=== PATIENT | female | born 1930 | race Caucasian/White ===

== ENCOUNTER 2016-08-13 10:51 | Inpatient (IN) | payer OTHER ==
[2016-08-13 11:54] LABS: BASOPHILS # (AUTO) 0.1 X10^3/uL (0.0-0.1); BASOPHILS % (AUTO) 0.9 % (0.2-1.0); EOSINOPHILS # (AUTO) 0.4 x10^3/uL (0.0-0.2); EOSINOPHILS % (AUTO) 2.7 % (0.9-2.9); HEMATOCRIT 33.9 % (36.0-47.0); HEMOGLOBIN 11.4 g/dL (12.0-16.0); LYMPHOCYTES # (AUTO) 1.1 X10^3/uL (1.3-2.9); MEAN CORPUSCULAR HEMOGLOBIN 32.9 pg (27.0-34.0); MEAN CORPUSCULAR HGB CONC 33.7 g/dL (33.0-35.0); MEAN CORPUSCULAR VOLUME 97.7 fL (80.0-100.0); MEAN PLATELET VOLUME 8.1 fL (7.4-11.0); MONOCYTES # (AUTO) 1.4 x10^3/uL (0.3-0.8); NEUTROPHILS # (AUTO) 10.9 x10^3/uL (2.2-4.8); NEUTROPHILS % (AUTO) 78.4 % (42.0-75.0); PLATELET COUNT 304 X10^3/uL (150.0-450.0); RED BLOOD COUNT 3.47 X10^6/uL (3.5-5.4); RED CELL DISTRIBUTION WIDTH 14.6 % (11.6-16.5); WHITE BLOOD COUNT 13.9 X10^3/uL (3.6-10.0)
--- NOTE | 2016-08-13 11:56 | RAD ---
HISTORY: Shortness of breath Study: Portable chest. Comparison: Portable chest dated December 18, 2015. Findings: The trachea is midline. The cardiac silhouette is mildly enlarged but unchanged. Prominent perihila r vasculature. Bibasilar scarring versus atelectasis. No obvious focal consolidation, pleural effusi on, or pneumothorax. Patient is status post right shoulder arthroplasty with associated remote fract ure of the proximal humerus at the level of the prosthetic stem. Remaining osseous structures appear unchanged. IMPRESSION: 1. No acute cardiopulmonary disease. Reported By:
[2016-08-13 12:07] LABS: BLOOD UREA NITROGEN 16 mg/dL (7-18); CALCIUM 9.4 mg/dL (8.5-10.1); CARBON DIOXIDE 35.4 mmol/L (21-32); CHLORIDE 95 mmol/L (98-107); COR NA(FOR HYPERGLY) 132 mmol/L (136-145); CREATININE 0.91 mg/dL (0.55-1.02); GLUCOSE 166 mg/dL (65-99); SODIUM 130 mmol/L (136-145); TROPONIN I < 0.02 ng/mL (0-1.5); eGFR BLACK RACES > 60 (>60); eGFR NON BLACK RACES > 60 (>60)
[2016-08-13 12:11] LABS: ALANINE AMINOTRANSFERASE 15 Units/L (12-78); ALBUMIN 2.4 g/dL (3.4-5.0); ALKALINE PHOSPHATASE 80 Units/L (46-116); ASPARTATE AMINO TRANSFERASE 29 Units/L (15-37); CKMB % 6.7 % (<4); COR CA(FOR HYPOALB) 10.7 mg/dL (8.5-10.1); CREATINE KINASE 15 Units/L (26-192); CREATINE KINASE MB < 1.0 ng/mL (0-4.0); TOTAL PROTEIN 6.6 g/dL (6.4-8.2)
[2016-08-13 12:13] LABS: B-TYPE NATRIURETIC PEPTIDE 295 pg/mL (0-79)
[2016-08-13] MEDS: NS 1000 ML 1,000 ML IV SCH ×2 (12:21→20:30)
[2016-08-13] MEDS ORDERED: LEVAQUIN PREMIX IV 750 MG 750 MG/150 ML BAG IV ONE ×2 (12:26→12:30)
--- NOTE | 2016-08-13 13:02 | DR.SOBA ---
HPI - Time Seen Time seen: 11:20 - Primary Care Physician Primary Care Physician: Jason - HPI Comment HPI Comment: COUGH IS PRODCTIVE, CHEST PAIN MAINLY CHEST TIGHTNESS. - Complaints Chief Complaint Doctors Comments: PERSISTENT COUGH, CHEST PAIN, AND FEVER. TOOK ANTIBIOTICS TWICE. SYMPTOMS GETTING WORSE. Chief Complaint:: Pt arrived by EMS with c/o possible pneumonia. Pts daughter states she had bronchitis recently. - Reviewed Nurses Notes Reviewed: Yes - Source History Provided: Patient, Family Member - Mode of Arrival Mode of Arrival: Stretcher - Timing Onset of Chief Complaint: 07/16/16 - Duration Duration: Weeks - Context Onset:: At Rest PE Risk Factors:: None History of:: CHF - Modifying Factors Worsens:: Nothing Improves:: Nothing - Associated Signs and Symptoms Associated Signs and Symptoms: Fever, Nasal Congestion, Chest Pain - If Chest Pain Quality: Pleuritic (TIGHTNESS) Location: Chest Wall - If Cough Cough: Productive PMH - PMH Past Medical History: Yes Past Medical History: CHF, CVA, Diabetes, Hypertension Past Surgical History: Yes Surgical History: Angioplasty/Stents, Hysterectomy, Ortho Surgery, Tonsillectomy - Family History History of Family Medical Conditions: Yes Family Medical History: Diabetes Mellitus, [place], Sudden Cardiac - Social History Does patient currently use any type of tobacco product: No Have you used tobacco products in the last 12 months: No Type of Tobacco Use: None Does any household member use tobacco: No Alcohol Use: None Do you use any recreational Drugs:: No Lives With: Alone Lives Where: Home - infectious screening In the last 2 months have you had wt loss of >10#?: NO Have you had fever, night sweats or hemotysis?: No Have you traveled outside the country in the last 6 months?: No Isolation: Standard ROS - Review of Systems Constitutional: Chills, Fever, Weakness, Fatigue. negative: Diaphoresis, Loss of Appetite Eyes: No Symptoms Reported ENTM: Nose Congestion. negative: Nose Discharge, Throat Pain Respiratoy: Productive Cough, Short of Breath, Wheezing Cardiovascular: Chest Pain (TIGHTNESS) Gastrointestinal/Abdominal: No Symptoms Reported Genitourinary: No Symptoms Reported Neurological: Headache, Weakness Musculoskeletal: Joint Pain, Joint Swelling, Muscle Pain Integumentary: negative: Rash, Juandice Hematologic/Lymphatic: Easy Bleeding, Easy Bruising Endocrine: No Symptoms Reported All Other Systems: Reviewed and Negative PE - Vital Signs Vitals: Temperature 99.1 F Pulse Rate 92 Respiratory Rate 18 Blood Pressure [Right Calf] 120/62 Blood Pressure [Left Calf] 161/57 Blood Pressure [Left Arm] 147/67 Blood Pressure [Right Arm] 111/67 Blood Pressure [Right Radial 124/65 Artery] Blood Pressure 147/67 O2 Sat by Pulse Oximetry 93 - General Limitations: No Limitations General Appearance: Alert - Head Head Exam: Normal Inspection - Eyes Eye exam: Normal Appearance - ENT ENT Exam: Normal External Ear Exam - Neck Neck Exam: Trachea Midline - Chest Chest Inspection: Symmetric Chest Wall Rise - Respiratory Respiratory Exam: Normal Lung Sounds Bilat Respiratory Exam: Bilateral Wheezing, Bilateral Rhonchi, Lower Wheezing, Lower Rhonchi - Cardiovascular Cardiovascular Exam: Normal Rhythm, Bradycardia - Abdominal Exam Abdominal Exam: Normal Bowel Sounds, Soft. negative: Tenderness - Extremities Extremities Exam: Edema - Back Back Exam: Normal Inspection - Neurologic Neurological Exam: Alert, Oriented X3 - Psychiatric Psychiatric Exam: Normal Mood - Skin Skin Exam: Erythema MDM - Additional Information Obtained Additional Information Obtained From: Family - Differential Diagnosis Differential Diagnosis: Bronchitis, CHF, COPD, Mycardial Infarction, Pneumonia, Pneumothorax, Pulmonary embolism, Respiratory Failure, Respiratory Insufficiency , Sinusitis, URI Course - Treatment Treatment: SEE ORDERS. - Education/Counseling Education/Counseling: Patient, Education Educated On: Treatment, Diagnosis, Needs for Follow Up ROR - Labs Reviewed Laboratory Results Reviewed?: Yes Result Diagrams: 08/16/16 04:35 08/16/16 04:35 Laboratory: WBC 13.9 X10^3/uL (3.6-10.0) H 08/13/16 11:36 RBC 3.47 X10^6/uL (3.5-5.4) L 08/13/16 11:36 Hgb 11.4 g/dL (12.0-16.0) L 08/13/16 11:36 Hct 33.9 % (36.0-47.0) L 08/13/16 11:36 MCV 97.7 fL (80.0-100.0) 08/13/16 11:36 MCH 32.9 pg (27.0-34.0) 08/13/16 11:36 MCHC 33.7 g/dL (33.0-35.0) 08/13/16 11:36 RDW 14.6 % (11.6-16.5) 08/13/16 11:36 Plt Count 304 X10^3/uL (150.0-450.0) 08/13/16 11:36 MPV 8.1 fL (7.4-11.0) 08/13/16 11:36 Neut % 78.4 % (42.0-75.0) H 08/13/16 11:36 Lymph % 8.0 % (21.0-51.0) L 08/13/16 11:36 [place] % 10.0 % (0.0-13.0) 08/13/16 11:36 Eos % 2.7 % (0.9-2.9) 08/13/16 11:36 Baso % 0.9 % (0.2-1.0) 08/13/16 11:36 Neut # 10.9 x10^3/uL (2.2-4.8) H 08/13/16 11:36 Lymph # 1.1 X10^3/uL (1.3-2.9) L 08/13/16 11:36 [place] # 1.4 x10^3/uL (0.3-0.8) H 08/13/16 11:36 Eos # 0.4 x10^3/uL (0.0-0.2) H 08/13/16 11:36 Baso # 0.1 X10^3/uL (0.0-0.1) 08/13/16 11:36 Absolute Nucleated RBC 0.1 /100WBC 08/13/16 11:36 Sodium 130 mmol/L (136-145) L 08/13/16 11:36 Corrected Sodium 132 mmol/L (136-145) L 08/13/16 11:36 Potassium 4.7 mmol/L (3.5-5.1) 08/13/16 11:36 Chloride 95 mmol/L (98-107) L 08/13/16 11:36 Carbon Dioxide 35.4 mmol/L (21-32) H 08/13/16 11:36 BUN 16 mg/dL (7-18) 08/13/16 11:36 Creatinine 0.91 mg/dL (0.55-1.02) 08/13/16 11:36 Est GFR (MDRD) Af Amer > 60 (>60) 08/13/16 11:36 Est GFR (MDRD) Non-Af > 60 (>60) 08/13/16 11:36 Glucose 166 mg/dL (65-99) H 08/13/16 11:36 Calcium 9.4 mg/dL (8.5-10.1) 08/13/16 11:36 Corrected Calcium 10.7 mg/dL (8.5-10.1) H 08/13/16 11:36 Total Bilirubin 0.70 mg/dL (0.2-1.0) 08/13/16 11:36 AST 29 Units/L (15-37) 08/13/16 11:36 ALT 15 Units/L (12-78) 08/13/16 11:36 Alkaline Phosphatase 80 Units/L (46-116) 08/13/16 11:36 Creatine Kinase 15 Units/L (26-192) L 08/13/16 11:36 CK-MB (CK-2) < 1.0 ng/mL (0-4.0) 08/13/16 11:36 CK/CKMB % Calc 6.7 % (<4) 08/13/16 11:36 Troponin I < 0.02 ng/mL (0-1.5) 08/13/16 11:36 B-Natriuretic Peptide 295 pg/mL (0-79) H 08/13/16 11:36 Total Protein 6.6 g/dL (6.4-8.2) 08/13/16 11:36 Albumin 2.4 g/dL (3.4-5.0) L 08/13/16 11:36 Globulin 4.2 g/dL (2.5-4.5) 08/13/16 11:36 Albumin/Globulin Ratio 0.6 Ratio (1.1-2.1) L 08/13/16 11:36 - XRAY XRAY Interpreted by: Radiologist XRAY Findings: REPORT DISCUSS WITH FAMILY AND PATIENT. - EKG Rhythm: SB - Diagnosis Discharge Problem: Sinus bradycardia, Respiratory distress, CHF (congestive heart failure), Bronchitis - Discharge Plan Disposition: ADMITTED INPATIENT Condition: Stable - Follow ups/Referrals - Instructions
[2016-08-13 16:00] LABS: BILIRUBIN,URINE NEGATIVE (NEGATIVE); BLOOD/HEMOGLOBIN,URINE 1+ (NEGATIVE); GLUCOSE, URINE NEGATIVE (NEGATIVE); KETONES,URINE NEGATIVE (NEGATIVE); LEUKOCYTE ESTERASE ,URINE 3+ (NEGATIVE); NITRITES,URINE NEGATIVE (NEGATIVE); PROTEIN,URINE 1+ (NEGATIVE); UROBILINOGEN,URINE NORMAL (NORMAL)
[2016-08-13] MEDS: DUONEB 0.5 MG/3 MG NEB SCH ×2 (16:50→20:38)
[2016-08-13 16:59] LABS: APPEARANCE,URINE HAZY (CLEAR); BACTERIA,URINE TRACE /HPF (NEGATIVE); COLOR,URINE YELLOW (YELLOW); RBC,URINE 0-3 /HPF (NEGATIVE); SQUAMOUS EPITHELIAL CELL,UR FEW /HPF (NEGATIVE)
[2016-08-13 17:00] LABS: AMORPHOUS SEDIMENT,UR TRACE /HPF (NEGATIVE)
[2016-08-13 18:31] LABS: CKMB % 5.6 % (<4); CREATINE KINASE 18 Units/L (26-192); TROPONIN I < 0.02 ng/mL (0-1.5)
[2016-08-13] MEDS: DIFLUCAN 200 MG IV PREMIX* 200 MG/100 ML BAG IV SCH (19:15)
[2016-08-13] MEDS ORDERED: REQUIP PO ONE (20:30)
[2016-08-14] MEDS: DUONEB 0.5 MG/3 MG NEB SCH ×6 (00:59→21:13)
[2016-08-14 01:39] LABS: CKMB % 2.2 % (<4); CREATINE KINASE 45 Units/L (26-192); CREATINE KINASE MB < 1.0 ng/mL (0-4.0); TROPONIN I < 0.02 ng/mL (0-1.5)
[2016-08-14] MEDS: NS 1000 ML 1,000 ML IV SCH ×3 (03:00→20:24)
[2016-08-14 07:58] LABS: BASOPHILS # (AUTO) 0.1 X10^3/uL (0.0-0.1); BASOPHILS % (AUTO) 0.8 % (0.2-1.0); EOSINOPHILS # (AUTO) 0.1 x10^3/uL (0.0-0.2); EOSINOPHILS % (AUTO) 0.5 % (0.9-2.9); HEMATOCRIT 32.9 % (36.0-47.0); HEMOGLOBIN 11.2 g/dL (12.0-16.0); LYMPHOCYTES # (AUTO) 0.7 X10^3/uL (1.3-2.9); MEAN CORPUSCULAR HEMOGLOBIN 32.9 pg (27.0-34.0); MEAN CORPUSCULAR VOLUME 96.8 fL (80.0-100.0); MONOCYTES # (AUTO) 1.5 x10^3/uL (0.3-0.8); MONOCYTES % (AUTO) 12.2 % (0.0-13.0); NEUTROPHILS # (AUTO) 10.1 x10^3/uL (2.2-4.8); NEUTROPHILS % (AUTO) 80.5 % (42.0-75.0); PLATELET COUNT 274 X10^3/uL (150.0-450.0); RED CELL DISTRIBUTION WIDTH 15.1 % (11.6-16.5); WHITE BLOOD COUNT 12.5 X10^3/uL (3.6-10.0)
[2016-08-14 08:06] LABS: ALANINE AMINOTRANSFERASE 15 Units/L (12-78); ALBUMIN 2.2 g/dL (3.4-5.0); ALKALINE PHOSPHATASE 72 Units/L (46-116); ASPARTATE AMINO TRANSFERASE 24 Units/L (15-37); BLOOD UREA NITROGEN 9 mg/dL (7-18); CALCIUM 8.7 mg/dL (8.5-10.1); CARBON DIOXIDE 33.7 mmol/L (21-32); CHLORIDE 96 mmol/L (98-107); CHOL/HDL RATIO 6.3 (0.0-5.0); CHOLESTEROL 146 mg/dL (0-200); COR CA(FOR HYPOALB) 10.1 mg/dL (8.5-10.1); COR NA(FOR HYPERGLY) 135 mmol/L (136-145); GLUCOSE 179 mg/dL (65-99); HDL CHOLESTEROL 23 mg/dL (40-60); SODIUM 133 mmol/L (136-145); TOTAL PROTEIN 6.3 g/dL (6.4-8.2); TRIGLYCERIDES 92 mg/dL (0-150); eGFR BLACK RACES > 60 (>60); eGFR NON BLACK RACES > 60 (>60)
[2016-08-14] MEDS: LEVAQUIN PREMIX IV 750 MG 750 MG/150 ML BAG IV SCH (08:17)
[2016-08-14] MEDS ORDERED: CALCIUM CARBONATE SIMETHICONE PO SCH (09:45)
[2016-08-14] MEDS ORDERED: [UNRECOGNIZED DRUG - OTHER] PO SCH (09:45)
[2016-08-14] MEDS ORDERED: CHOLECALCIFEROL PO SCH (09:45)
[2016-08-14] MEDS ORDERED: METHOTREXATE PO SCH (10:00)
[2016-08-14] MEDS: BUTT CREAM (COMPOUND) TOP PRN ×3 (10:45→17:30)
[2016-08-14] MEDS: HEMOCYTE-PLUS PO SCH (10:46)
[2016-08-14] MEDS: DIFLUCAN 200 MG IV PREMIX* 200 MG/100 ML BAG IV SCH (10:46)
[2016-08-14] MEDS: TOPROL XL PO SCH (10:47)
[2016-08-14] MEDS: LANOXIN PO SCH (10:47)
[2016-08-14] MEDS: JANUVIA PO SCH (10:47)
[2016-08-14] MEDS: NEURONTIN CAP 300 MG PO SCH ×3 (10:48→21:08)
[2016-08-14] MEDS: PLAVIX PO SCH (10:48)
[2016-08-14] MEDS: FOLIC ACID TAB 1 MG PO SCH (10:49)
[2016-08-14] MEDS: PREVACID PO SCH (10:49)
[2016-08-14] MEDS: SYNTHROID 100 mcg TAB PO SCH (10:49)
[2016-08-14] MEDS: VITAMIN D3 PO SCH (10:55)
[2016-08-14] MEDS: MYLICON TAB 80 MG CHEW PO SCH (10:57)
[2016-08-14] MEDS: TUMS PO SCH (10:58)
[2016-08-14] MEDS: HumuLIN R SUBCUT PRN ×2 (11:36→20:30)
--- NOTE | 2016-08-14 11:55 | DR.H&P ---
H&P - History & Physical for Day of: H&P Date: 08/13/16 - Chief Complaint Chief Complaint: shortness of breath - Allergies Allergies/Adverse Reactions: Allergies Allergy/AdvReac Type Severity Reaction Status Date / Time Penicillins Allergy Verified 06/16/15 13:30 - History of Present Illness History of Present Illness: Patient is a an 86yo female who presented to the emergency room with complaints of shortness of breath, fever and cough. Upon arrival vital signs 99.1, 92, 18, 93% on NC, 147/67. Labs wihting normal limits with the exception of WBC 13.9, RBC 3.47, Hgb 11.4, Hct 33.9, Neut% 18.4, Lymph % 8.0, Neut# 10.9, Lymph# 1.1, [place]# 1.4, Eos# 0.4, D-Dimer 3790, Sodium 130, Chloride 95, Carbon Dioxide 35.4, Glucose 166, Creatinine Kinase 15, BNP 295, Albumin 2.4, Albumin/Globulin Ratio 0.6. Chest Xray showed No acute cardiopulmonary disease. EKG showed Afib, incomplete right bundle branch block. Patient admitted with diagnosis of Respiratory Distress, Bronchitis and CHF. PAteint with history of CHF, CVA, dementia, diabetes mellitus type 2, and hypertension. Patient started on NS@ 50ml/hr and Levaquin IV as well as duonebs - Past Medical History Past Medical History: CHF, CVA, Diabetes, Hypertension Additional Medical History: Vision deficit with corrective lenses, Frequent UTI' s, Back pain - Past Surgical History Surgical History: Ortho Surgery - Family History Family Medical History: Diabetes Mellitus, [place], Hypertension - Social History Does patient currently use any type of tobacco product: No Have you used tobacco products in the last 12 months: No Type of Tobacco Use: None Does any household member use tobacco: No Alcohol Use: None Drug Use: None - Medications Home Medications: Aspirin [ASPIRIN 81 MG CHEWTAB *] 81 mg PO HS 08/13/16 [History Confirmed ] Clopidogrel Bisulfate [PLAVIX TAB 75 MG *] 75 mg PO DAILY 08/13/16 [History Confirmed 08/13/16] - Review of Systems Constitutional: Fever, Weakness Eyes: No Symptoms Reported ENT: No Symptoms Reported Respiratory: Cough, Shortness of Breath Cardiovascular: No Symptoms Reported Gastrointestinal: No Symptoms Reported Genitourinary: No Symptoms Reported Musculoskeletal: No Symptoms Reported Skin: No Symptoms Reported Neurological: No Symptoms Reported - Physical Exam Vital Signs: 99.1, 92, 18, 93% on NC, 147/67 Oriented: Normal Eyes: Normal Ear: Normal Nose: Normal Throat: Normal Respiratory: Wheezes Throughout Cardiovascular: Normal : Normal Auscultation: Bowel Sounds: Normal Palpation: Normal Tenderness: Normal Skin: Normal Musculoskeletal: Normal Psychiatric: Normal Mood Description: Calm, Appropriate Affect: Normal Speech Pattern: Clear, Appropriate - Assessment/Plan (1) Respiratory distress Status: Acute Plan: Supplemental oxygen continue to monitor (2) Acute bronchitis Qualifiers: Bronchitis organism: B Status: Acute Plan: Levaquin IV, Duonebs and supplemental oxygen (3) CHF (congestive heart failure) Qualifiers: Congestive heart failure type: C Congestive heart failure chronicity: C Status: Chronic Plan: continue to monitor
--- NOTE | 2016-08-14 12:21 | PCM.PROG ---
Progress Note - Progress Note for Day of Date: 08/14/16 - Subjective Subjective: Patient is a 88yo female who was admitted to the hospital with respiratory distress, acute bronchitis and CHF. Vital signs this am 99.6, 99, 16 , 97% on NC, 176/87. Labs are within normal limits with the exception of WBC 12.5, RBC 3.40, Hgb 11.2, Hct 32.9, Neut% 80.5, Lymph% 6.0, Eos% 0.5, Neut# 10.1 , Lymph# 0.7, [place]# 1.5, Sodium 133, Chloride 96, Carbon Dioxide 33.7, Glucose 179, Total protein 6.3, Albumin 2.2, Albumin/Globulin Ratio 0.5, LDL Cholesterol 105, HDL Cholesterol 23. Physical exam this am reveals wheezing on auscultation of lungs scattered but worst in RUL. We are going to continue he on IV Antibiotics and resume her home medications with the exception of her levemir since her high glucose is 179 and she has not been eating well. - Past Medical Family Social History Past Med/Fam/Surg Hx: No changes since H&P Allergies: Allergies Penicillins Allergy (Verified 06/16/15 13:30) - Review of Systems ROS: No change since H&P - Vital Signs and I&O's Vital Signs: Temperature 99.6 F Pulse Rate [Apical] 99 Pulse Rate 109 Respiratory Rate 16 Blood Pressure [Left Arm] 176/87 O2 Sat by Pulse Oximetry 98 Intake and Output: Intake & Output 08/12/16 08/13/16 08/14/16 08/15/16 11:59 11:59 11:59 11:59 Intake Total 1471 Output Total 750 Balance 721 - Physical Exam Oriented: Normal Eyes: Normal Ear: Normal Nose: Normal Throat: Normal Respiratory: Generalized, Wheezes Cardiovascular: Normal : Normal Auscultation: Bowel Sounds: Normal Tenderness: Normal Skin: Normal Musculoskeletal: Normal Psychiatric: Normal Mood Description: Calm, Appropriate Affect: Normal Speech Pattern: Clear, Appropriate - Laboratory and Diagnostics Result Diagrams: 08/14/16 07:45 08/14/16 07:45 Labs: 08/13/16 18:45 Sputum - Expectorated Sputum Sputum Culture - Preliminary 08/13/16 18:45 Sputum - Expectorated Sputum - Final 08/13/16 16:45 Urine,Clean Catch Urine Culture - Preliminary Laboratory WBC 12.5 X10^3/uL (3.6-10.0) H 08/14/16 07:45 RBC 3.40 X10^6/uL (3.5-5.4) L 08/14/16 07:45 Hgb 11.2 g/dL (12.0-16.0) L 08/14/16 07:45 Hct 32.9 % (36.0-47.0) L 08/14/16 07:45 MCV 96.8 fL (80.0-100.0) 08/14/16 07:45 MCH 32.9 pg (27.0-34.0) 08/14/16 07:45 MCHC 34.0 g/dL (33.0-35.0) 08/14/16 07:45 RDW 15.1 % (11.6-16.5) 08/14/16 07:45 Plt Count 274 X10^3/uL (150.0-450.0) 08/14/16 07:45 MPV 8.0 fL (7.4-11.0) 08/14/16 07:45 Neut % 80.5 % (42.0-75.0) H 08/14/16 07:45 Lymph % 6.0 % (21.0-51.0) L 08/14/16 07:45 [place] % 12.2 % (0.0-13.0) 08/14/16 07:45 Eos % 0.5 % (0.9-2.9) L 08/14/16 07:45 Baso % 0.8 % (0.2-1.0) 08/14/16 07:45 Neut # 10.1 x10^3/uL (2.2-4.8) H 08/14/16 07:45 Lymph # 0.7 X10^3/uL (1.3-2.9) L 08/14/16 07:45 [place] # 1.5 x10^3/uL (0.3-0.8) H 08/14/16 07:45 Eos # 0.1 x10^3/uL (0.0-0.2) 08/14/16 07:45 Baso # 0.1 X10^3/uL (0.0-0.1) 08/14/16 07:45 Absolute Nucleated RBC 0.0 /100WBC 08/14/16 07:45 D-Dimer 3790 ng/mL (0-400) H* 08/13/16 11:36 Sodium 133 mmol/L (136-145) L 08/14/16 07:45 Corrected Sodium 135 mmol/L (136-145) L 08/14/16 07:45 Potassium 4.5 mmol/L (3.5-5.1) 08/14/16 07:45 Chloride 96 mmol/L (98-107) L 08/14/16 07:45 Carbon Dioxide 33.7 mmol/L (21-32) H 08/14/16 07:45 BUN 9 mg/dL (7-18) 08/14/16 07:45 Creatinine 0.70 mg/dL (0.55-1.02) 08/14/16 07:45 Est GFR (MDRD) Af Amer > 60 (>60) 08/14/16 07:45 Est GFR (MDRD) Non-Af > 60 (>60) 08/14/16 07:45 Glucose 179 mg/dL (65-99) H 08/14/16 07:45 Calcium 8.7 mg/dL (8.5-10.1) 08/14/16 07:45 Corrected Calcium 10.1 mg/dL (8.5-10.1) 08/14/16 07:45 Total Bilirubin 0.60 mg/dL (0.2-1.0) 08/14/16 07:45 AST 24 Units/L (15-37) 08/14/16 07:45 ALT 15 Units/L (12-78) 08/14/16 07:45 Alkaline Phosphatase 72 Units/L (46-116) 08/14/16 07:45 Creatine Kinase 45 Units/L (26-192) 08/14/16 00:50 CK-MB (CK-2) < 1.0 ng/mL (0-4.0) 08/14/16 00:50 CK/CKMB % Calc 2.2 % (<4) 08/14/16 00:50 Troponin I < 0.02 ng/mL (0-1.5) 08/14/16 00:50 B-Natriuretic Peptide 295 pg/mL (0-79) H 08/13/16 11:36 Total Protein 6.3 g/dL (6.4-8.2) L 08/14/16 07:45 Albumin 2.2 g/dL (3.4-5.0) L 08/14/16 07:45 Globulin 4.1 g/dL (2.5-4.5) 08/14/16 07:45 Albumin/Globulin Ratio 0.5 Ratio (1.1-2.1) L 08/14/16 07:45 Triglycerides 92 mg/dL (0-150) 08/14/16 07:45 Cholesterol 146 mg/dL (0-200) 08/14/16 07:45 LDL Cholesterol, Calc 105 mg/dL (0-100) H 08/14/16 07:45 HDL Cholesterol 23 mg/dL (40-60) L 08/14/16 07:45 Cholesterol/HDL Ratio 6.3 (0.0-5.0) H 08/14/16 07:45 Specimen Type Clean catch urine 08/13/16 15:46 Urine Color Yellow (YELLOW) 08/13/16 15:46 Urine Appearance Hazy (CLEAR) 08/13/16 15:46 Urine pH 5.0 (5.0 - 8.0) 08/13/16 15:46 Ur Specific [place] 1.015 (1.000-1.030) 08/13/16 15:46 Urine Protein 1+ (NEGATIVE) 08/13/16 15:46 Urine Glucose (UA) Negative (NEGATIVE) 08/13/16 15:46 Urine Ketones Negative (NEGATIVE) 08/13/16 15:46 Urine Occult Blood 1+ (NEGATIVE) 08/13/16 15:46 Urine Nitrite Negative (NEGATIVE) 08/13/16 15:46 Urine Bilirubin Negative (NEGATIVE) 08/13/16 15:46 Urine Urobilinogen Normal (NORMAL) 08/13/16 15:46 Ur Leukocyte Esterase 3+ (NEGATIVE) 08/13/16 15:46 Urine RBC 0-3 /HPF (NEGATIVE) 08/13/16 15:46 Urine WBC 28-32 /HPF (NEGATIVE) 08/13/16 15:46 Ur Squamous Epith Cells Few /HPF (NEGATIVE) 08/13/16 15:46 Amorphous Sediment Trace /HPF (NEGATIVE) 08/13/16 15:46 Urine Bacteria Trace /HPF (NEGATIVE) 08/13/16 15:46 Ur Culture Indicated? Yes/culture set up 08/13/16 15:46 Radiology Reviewed: Yes - Plan (1) Respiratory distress Status: Acute Plan: Supplemental oxygen continue to monitor (2) Acute bronchitis Status: Acute Qualifiers: Bronchitis organism: B Plan: Levaquin IV, Duonebs and supplemental oxygen (3) CHF (congestive heart failure) Status: Chronic Qualifiers: Congestive heart failure type: C Congestive heart failure chronicity: C Plan: continue to monitor (4) Diabetes mellitus Status: Chronic Qualifiers: Diabetes mellitus type: D Diabetes mellitus complication status: D Diabetes mellitus complication detail: D Diabetic retinopathy severity: D Proliferative retinopathy type: P Diabetes mellitus macular edema: D 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
[2016-08-14] MEDS: SNACK - Diabetic Appropriate PO SCH (20:24)
[2016-08-14] MEDS: ASPIRIN 81 MG CHEWTAB PO SCH (20:25)
[2016-08-14] MEDS: NIASPAN ER TAB 500 MG PO SCH (20:25)
[2016-08-14] MEDS: REQUIP PO SCH (20:25)
[2016-08-14] MEDS: NORCO 10/325 TAB PO PRN (21:10)
[2016-08-14 22:06] VITALS: BMI 27.4
[2016-08-15] MEDS: DUONEB 0.5 MG/3 MG NEB SCH ×6 (01:05→20:28)
[2016-08-15] MEDS ORDERED: NYSTATIN POWDER ONE (04:00)
[2016-08-15] MEDS ORDERED: NYSTATIN POWDER TOP PRN (04:31)
[2016-08-15] MEDS: NS 1000 ML 1,000 ML IV SCH ×3 (04:32→18:21)
[2016-08-15] MEDS: NEURONTIN CAP 300 MG PO SCH ×4 (05:55→21:44)
[2016-08-15 06:09] LABS: BASOPHILS % (AUTO) 0.2 % (0.2-1.0); EOSINOPHILS # (AUTO) 0.2 x10^3/uL (0.0-0.2); EOSINOPHILS % (AUTO) 1.4 % (0.9-2.9); HEMATOCRIT 34.9 % (36.0-47.0); HEMOGLOBIN 11.7 g/dL (12.0-16.0); LYMPHOCYTES # (AUTO) 0.9 X10^3/uL (1.3-2.9); LYMPHOCYTES % (AUTO) 6.1 % (21.0-51.0); MEAN CORPUSCULAR HEMOGLOBIN 32.9 pg (27.0-34.0); MEAN CORPUSCULAR HGB CONC 33.6 g/dL (33.0-35.0); MEAN CORPUSCULAR VOLUME 97.9 fL (80.0-100.0); MEAN PLATELET VOLUME 8.5 fL (7.4-11.0); MONOCYTES # (AUTO) 1.8 x10^3/uL (0.3-0.8); MONOCYTES % (AUTO) 11.9 % (0.0-13.0); NEUTROPHILS # (AUTO) 12.1 x10^3/uL (2.2-4.8); NEUTROPHILS % (AUTO) 80.4 % (42.0-75.0); PLATELET COUNT 277 X10^3/uL (150.0-450.0); RED BLOOD COUNT 3.56 X10^6/uL (3.5-5.4); RED CELL DISTRIBUTION WIDTH 15.1 % (11.6-16.5)
--- NOTE | 2016-08-15 06:18 | RAD ---
HISTORY: Bronchitis Study: Chest one view Comparison: August 13, 2016 Findings: The heart remains mildly enlarged. No congestive heart failure is noted. The aorta is calcified. The lungs are mildly hyperinflated but free of acute alveolar infiltrates. No pleural effusions are pre sent. The bony thorax is with the exception of a right shoulder hemiarthroplasty unchanged in appear ance from the prior examination. IMPRESSION: Mild cardiomegaly without congestive heart failure Lungs hyperinflated but free of acute infiltrates Reported By:
[2016-08-15 07:23] LABS: ERYTHROCYTE SEDIMENTATION RATE 58 MM/HOUR (0-20)
[2016-08-15] MEDS: JANUVIA PO SCH (08:05)
[2016-08-15] MEDS: TOPROL XL PO SCH (08:05)
[2016-08-15] MEDS: PREVACID PO SCH (08:05)
[2016-08-15] MEDS: LANOXIN PO SCH (08:05)
[2016-08-15] MEDS: HEMOCYTE-PLUS PO SCH (08:05)
[2016-08-15] MEDS: LEVAQUIN PREMIX IV 750 MG 750 MG/150 ML BAG IV SCH (08:05)
[2016-08-15] MEDS: FOLIC ACID TAB 1 MG PO SCH (08:05)
[2016-08-15] MEDS: PLAVIX PO SCH (08:05)
[2016-08-15] MEDS: DIFLUCAN 200 MG IV PREMIX* 200 MG/100 ML BAG IV SCH (08:06)
[2016-08-15] MEDS: MYLICON TAB 80 MG CHEW PO SCH (08:07)
[2016-08-15] MEDS: VITAMIN D3 PO SCH (08:07)
[2016-08-15] MEDS: TUMS PO SCH (08:07)
[2016-08-15] MEDS: SYNTHROID 100 mcg TAB PO SCH (08:07)
[2016-08-15 09:13] LABS: ALANINE AMINOTRANSFERASE 17 Units/L (12-78); ALBUMIN 2.3 g/dL (3.4-5.0); ALKALINE PHOSPHATASE 78 Units/L (46-116); ASPARTATE AMINO TRANSFERASE 40 Units/L (15-37); BLOOD UREA NITROGEN 7 mg/dL (7-18); CALCIUM 9.2 mg/dL (8.5-10.1); CARBON DIOXIDE 29.1 mmol/L (21-32); CHLORIDE 96 mmol/L (98-107); COR CA(FOR HYPOALB) 10.6 mg/dL (8.5-10.1); COR NA(FOR HYPERGLY) 139 mmol/L (136-145); CREATININE 0.75 mg/dL (0.55-1.02); GLUCOSE 167 mg/dL (65-99); SODIUM 137 mmol/L (136-145); TOTAL PROTEIN 6.6 g/dL (6.4-8.2); eGFR BLACK RACES > 60 (>60); eGFR NON BLACK RACES > 60 (>60)
--- NOTE | 2016-08-15 10:19 | PCM.PROG ---
Progress Note - Progress Note for Day of Date: 08/15/16 - Subjective Subjective: Patient is a 86yo female who was admitted to the hospital with respiratory distress, Acute bronchitis and congestive heart failure. Pateint states she is felling a little bit better this am, she coughed a lot during the night, she is noted to have RUL wheezing on auscultation. Family voiced concerns that they are unable to care for her at home like they should and would like [place]. We are going to work with case management to help get [place] per familys request. Vital signs this am 97.9 95, 24, 99% NC, 167/84. Labs are within normal limits with the exception of WBC 15.0, Hgb 11.7, Hct 34.9, Neut% 80.4, Lymph% 6.1, Neut# 12.1, Lymph# 0.9, [place]# 1.8, ESR 58, Chloride 96, Glucose 167, AST 40, CRP 64.60 , Albumin 2.3, Albumin/Globulin Ratio 0.5. Chest xray shows mild cardiomegaly without CHF, lungs hyperinflated but clear of infiltrates. We will follow up [facility] patient in the am with repeat labs and CXR. - Past Medical Family Social History Past Med/Fam/Surg Hx: No changes since H&P Allergies: Allergies Penicillins Allergy (Verified 06/16/15 13:30) - Review of Systems ROS: No change since H&P - Vital Signs and I&O's Vital Signs: 97.9 95, 24, 99% NC, 167/84. Intake and Output: Intake & Output 08/12/16 08/13/16 08/14/16 08/15/16 11:59 11:59 11:59 11:59 Intake Total 125 Balance 125 - Physical Exam Oriented: Normal Eyes: Normal Ear: Normal Nose: Normal Throat: Normal Respiratory: Right (RUL wheezing), Wheezes Cardiovascular: Normal : Normal Auscultation: Bowel Sounds: Normal Tenderness: Normal Skin: Normal Musculoskeletal: Normal Psychiatric: Normal Mood Description: Calm, Appropriate Affect: Normal Speech Pattern: Clear, Appropriate - Laboratory and Diagnostics Result Diagrams: 08/15/16 05:00 08/15/16 05:00 Labs: Laboratory WBC 15.0 X10^3/uL (3.6-10.0) H 08/15/16 05:00 RBC 3.56 X10^6/uL (3.5-5.4) 08/15/16 05:00 Hgb 11.7 g/dL (12.0-16.0) L 08/15/16 05:00 Hct 34.9 % (36.0-47.0) L 08/15/16 05:00 MCV 97.9 fL (80.0-100.0) 08/15/16 05:00 MCH 32.9 pg (27.0-34.0) 08/15/16 05:00 MCHC 33.6 g/dL (33.0-35.0) 08/15/16 05:00 RDW 15.1 % (11.6-16.5) 08/15/16 05:00 Plt Count 277 X10^3/uL (150.0-450.0) 08/15/16 05:00 MPV 8.5 fL (7.4-11.0) 08/15/16 05:00 Neut % 80.4 % (42.0-75.0) H 08/15/16 05:00 Lymph % 6.1 % (21.0-51.0) L 08/15/16 05:00 [place] % 11.9 % (0.0-13.0) 08/15/16 05:00 Eos % 1.4 % (0.9-2.9) 08/15/16 05:00 Baso % 0.2 % (0.2-1.0) 08/15/16 05:00 Neut # 12.1 x10^3/uL (2.2-4.8) H 08/15/16 05:00 Lymph # 0.9 X10^3/uL (1.3-2.9) L 08/15/16 05:00 [place] # 1.8 x10^3/uL (0.3-0.8) H 08/15/16 05:00 Eos # 0.2 x10^3/uL (0.0-0.2) 08/15/16 05:00 Baso # 0.0 X10^3/uL (0.0-0.1) 08/15/16 05:00 Absolute Nucleated RBC 0.0 /100WBC 08/15/16 05:00 ESR 58 MM/HOUR (0-20) H 08/15/16 05:00 D-Dimer 3790 ng/mL (0-400) H* 08/13/16 11:36 Sodium 137 mmol/L (136-145) 08/15/16 05:00 Corrected Sodium 139 mmol/L (136-145) 08/15/16 05:00 Potassium 4.5 mmol/L (3.5-5.1) 08/15/16 05:00 Chloride 96 mmol/L (98-107) L 08/15/16 05:00 Carbon Dioxide 29.1 mmol/L (21-32) 08/15/16 05:00 BUN 7 mg/dL (7-18) 08/15/16 05:00 Creatinine 0.75 mg/dL (0.55-1.02) 08/15/16 05:00 Est GFR (MDRD) Af Amer > 60 (>60) 08/15/16 05:00 Est GFR (MDRD) Non-Af > 60 (>60) 08/15/16 05:00 Glucose 167 mg/dL (65-99) H 08/15/16 05:00 Calcium 9.2 mg/dL (8.5-10.1) 08/15/16 05:00 Corrected Calcium 10.6 mg/dL (8.5-10.1) H 08/15/16 05:00 Total Bilirubin 0.60 mg/dL (0.2-1.0) 08/15/16 05:00 AST 40 Units/L (15-37) H 08/15/16 05:00 ALT 17 Units/L (12-78) 08/15/16 05:00 Alkaline Phosphatase 78 Units/L (46-116) 08/15/16 05:00 Creatine Kinase 45 Units/L (26-192) 08/14/16 00:50 CK-MB (CK-2) < 1.0 ng/mL (0-4.0) 08/14/16 00:50 CK/CKMB % Calc 2.2 % (<4) 08/14/16 00:50 Troponin I < 0.02 ng/mL (0-1.5) 08/14/16 00:50 C-Reactive Protein 64.60 mg/L (0-3.0) H 08/15/16 05:00 B-Natriuretic Peptide 295 pg/mL (0-79) H 08/13/16 11:36 Total Protein 6.6 g/dL (6.4-8.2) 08/15/16 05:00 Albumin 2.3 g/dL (3.4-5.0) L 08/15/16 05:00 Globulin 4.3 g/dL (2.5-4.5) 08/15/16 05:00 Albumin/Globulin Ratio 0.5 Ratio (1.1-2.1) L 08/15/16 05:00 Triglycerides 92 mg/dL (0-150) 08/14/16 07:45 Cholesterol 146 mg/dL (0-200) 08/14/16 07:45 LDL Cholesterol, Calc 105 mg/dL (0-100) H 08/14/16 07:45 HDL Cholesterol 23 mg/dL (40-60) L 08/14/16 07:45 Cholesterol/HDL Ratio 6.3 (0.0-5.0) H 08/14/16 07:45 Specimen Type Clean catch urine 08/13/16 15:46 Urine Color Yellow (YELLOW) 08/13/16 15:46 Urine Appearance Hazy (CLEAR) 08/13/16 15:46 Urine pH 5.0 (5.0 - 8.0) 08/13/16 15:46 Ur Specific [place] 1.015 (1.000-1.030) 08/13/16 15:46 Urine Protein 1+ (NEGATIVE) 08/13/16 15:46 Urine Glucose (UA) Negative (NEGATIVE) 08/13/16 15:46 Urine Ketones Negative (NEGATIVE) 08/13/16 15:46 Urine Occult Blood 1+ (NEGATIVE) 08/13/16 15:46 Urine Nitrite Negative (NEGATIVE) 08/13/16 15:46 Urine Bilirubin Negative (NEGATIVE) 08/13/16 15:46 Urine Urobilinogen Normal (NORMAL) 08/13/16 15:46 Ur Leukocyte Esterase 3+ (NEGATIVE) 08/13/16 15:46 Urine RBC 0-3 /HPF (NEGATIVE) 08/13/16 15:46 Urine WBC 28-32 /HPF (NEGATIVE) 08/13/16 15:46 Ur Squamous Epith Cells Few /HPF (NEGATIVE) 08/13/16 15:46 Amorphous Sediment Trace /HPF (NEGATIVE) 08/13/16 15:46 Urine Bacteria Trace /HPF (NEGATIVE) 08/13/16 15:46 Ur Culture Indicated? Yes/culture set up 08/13/16 15:46 Radiology Reviewed: Yes - Plan (1) Respiratory distress Status: Acute Plan: Supplemental oxygen continue to monitor (2) Acute bronchitis Status: Acute Qualifiers: Bronchitis organism: B Plan: Levaquin IV, Duonebs and supplemental oxygen (3) CHF (congestive heart failure) Status: Chronic Qualifiers: Congestive heart failure type: C Congestive heart failure chronicity: C Plan: continue to monitor (4) Diabetes mellitus Status: Chronic Qualifiers: Diabetes mellitus type: D Diabetes mellitus complication status: D Diabetes mellitus complication detail: D Diabetic retinopathy severity: D Proliferative retinopathy type: P Diabetes mellitus macular edema: D Diabetes mellitus custodial insulin use: D Laterality: L Chronic kidney disease stage: C Plan: OTBS AC&HS with SSC resume home medication januvia (5) Hypertension Status: Chronic Qualifiers: Hypertension type: essential hypertension Qualified Code(s): I10 - Essential (primary) hypertension Plan: monitor resum home medication toprol XL, Lasix
[2016-08-15] MEDS: HumuLIN R SUBCUT PRN ×2 (11:30→16:32)
[2016-08-15] MEDS: ZOFRAN INJ 4 MG VIAL IVP PRN (12:57)
[2016-08-15] MEDS: ROBITUSSIN DM PO PRN (21:42)
[2016-08-15] MEDS: NIASPAN ER TAB 500 MG PO SCH (21:43)
[2016-08-15] MEDS: REQUIP PO SCH (21:43)
[2016-08-15] MEDS: ASPIRIN 81 MG CHEWTAB PO SCH (21:44)
[2016-08-15] MEDS: SNACK - Diabetic Appropriate PO SCH (21:45)
[2016-08-15] MEDS: LEVEMIR SC SCH (21:53)
[2016-08-16] MEDS: DUONEB 0.5 MG/3 MG NEB SCH ×6 (00:54→20:43)
[2016-08-16 05:24] LABS: BASOPHILS # (AUTO) 0.1 X10^3/uL (0.0-0.1); BASOPHILS % (AUTO) 0.4 % (0.2-1.0); EOSINOPHILS # (AUTO) 0.3 x10^3/uL (0.0-0.2); EOSINOPHILS % (AUTO) 1.7 % (0.9-2.9); HEMATOCRIT 32.7 % (36.0-47.0); LYMPHOCYTES % (AUTO) 5.8 % (21.0-51.0); MEAN CORPUSCULAR HEMOGLOBIN 32.7 pg (27.0-34.0); MEAN CORPUSCULAR HGB CONC 33.8 g/dL (33.0-35.0); MEAN CORPUSCULAR VOLUME 96.8 fL (80.0-100.0); MEAN PLATELET VOLUME 8.3 fL (7.4-11.0); MONOCYTES # (AUTO) 1.8 x10^3/uL (0.3-0.8); NEUTROPHILS # (AUTO) 14.4 x10^3/uL (2.2-4.8); NEUTROPHILS % (AUTO) 82.1 % (42.0-75.0); PLATELET COUNT 277 X10^3/uL (150.0-450.0); RED BLOOD COUNT 3.38 X10^6/uL (3.5-5.4); RED CELL DISTRIBUTION WIDTH 14.9 % (11.6-16.5); WHITE BLOOD COUNT 17.5 X10^3/uL (3.6-10.0)
[2016-08-16 05:28] LABS: ALANINE AMINOTRANSFERASE 14 Units/L (12-78); ALBUMIN 2.1 g/dL (3.4-5.0); ALKALINE PHOSPHATASE 67 Units/L (46-116); ASPARTATE AMINO TRANSFERASE 24 Units/L (15-37); BLOOD UREA NITROGEN 8 mg/dL (7-18); CALCIUM 8.9 mg/dL (8.5-10.1); CHLORIDE 97 mmol/L (98-107); COR CA(FOR HYPOALB) 10.4 mg/dL (8.5-10.1); CREATININE 0.72 mg/dL (0.55-1.02); GLUCOSE 102 mg/dL (65-99); SODIUM 136 mmol/L (136-145); TOTAL PROTEIN 6.2 g/dL (6.4-8.2); eGFR BLACK RACES > 60 (>60); eGFR NON BLACK RACES > 60 (>60)
--- NOTE | 2016-08-16 06:20 | RAD ---
HISTORY: Bronchitis Study: Chest one view Comparison: August 15, 2016 Findings: The patient is rotated to the left. The heart remains mildly enlarged. No congestive heart failure i s noted. The aorta is calcified. The lungs are mildly hyperinflated but free of acute infiltrates. N o pleural effusions are identified. The bony thorax is unremarkable with the exception of a right sh oulder hemiarthroplasty and a healed deformed proximal right humeral fracture. IMPRESSION: Cardiomegaly without congestive heart failure Lungs hyperinflated but free of acute infiltrates Reported By:
[2016-08-16] MEDS: NEURONTIN CAP 300 MG PO SCH ×3 (06:23→21:29)
[2016-08-16 07:16] LABS: ERYTHROCYTE SEDIMENTATION RATE 62 MM/HOUR (0-20)
[2016-08-16] MEDS ORDERED: LEVEMIR SC SCH (09:00)
[2016-08-16] MEDS: DIFLUCAN 200 MG IV PREMIX* 200 MG/100 ML BAG IV SCH (09:16)
[2016-08-16] MEDS: LEVAQUIN PREMIX IV 750 MG 750 MG/150 ML BAG IV SCH (09:17)
[2016-08-16] MEDS: MYLICON TAB 80 MG CHEW PO SCH (09:17)
[2016-08-16] MEDS: JANUVIA PO SCH (09:19)
[2016-08-16] MEDS: PLAVIX PO SCH (09:19)
[2016-08-16] MEDS: TOPROL XL PO SCH (09:20)
[2016-08-16] MEDS: FOLIC ACID TAB 1 MG PO SCH (09:20)
[2016-08-16] MEDS: PREVACID PO SCH (09:20)
[2016-08-16] MEDS: HEMOCYTE-PLUS PO SCH (09:20)
[2016-08-16] MEDS: VITAMIN D3 PO SCH (09:23)
[2016-08-16] MEDS: BUTT CREAM (COMPOUND) TOP PRN (10:00)
[2016-08-16] MEDS: LANOXIN PO SCH (11:17)
[2016-08-16] MEDS: ALBUMIN HUMAN 25%- 100ML 100 ML IV SCH (11:19)
[2016-08-16] MEDS: SYNTHROID 100 mcg TAB PO SCH (11:23)
[2016-08-16] MEDS: TUMS PO SCH (11:24)
[2016-08-16] MEDS: HumuLIN R SUBCUT PRN ×2 (11:44→16:55)
--- NOTE | 2016-08-16 12:33 | PCM.PROG ---
Progress Note - Progress Note for Day of Date: 08/16/16 - Subjective Subjective: Patient is a 86 yo female who was admitted to the hospital with Resp distress, acute bronchitis, and CHF. Patient states she is feeling somewhat better but is having a productive cough. Physical exam reveal harsh wheezes and rhochi to the right upper lobe of auscultation of lungs. WBC has increases d to 17.5 so we are going to add fortaz IV to her current Levaquin. Labs are within normal limits with the exception of WBC 17.5, RBC 3.38, Hgb 11.0 , Hct 32.7, Neut% 82.1, Lymph% 5.8, Neut# 14.4, Lymph# 1.0, [place]# 1.8, Eos# 0.3 , ESR 62, Chloride 97, Carbon dioxide 34.0, Glucose 102, CRP 80.50, Total Protein 6.2, Albumin 2.1, Albumin/Globulin Ratio 0.5. Patient is also noted to have some hypoalbuminemia for which we will start albumin IV Daily. Chest Xray this am shows cardiomegaly without congestive heart failure and lungs are hyperinflated but free of acute filtrates. Vital signs this am 98.0, 86, 20, 98 , 146/75. We will follow up with patient in the am with repeat labs and continue to work on shelter placement. - Past Medical Family Social History Past Med/Fam/Surg Hx: No changes since H&P Allergies: Allergies MS Penicillins [Penicillins] Allergy (Verified 06/16/15 13:30) - Review of Systems ROS: No change since H&P - Vital Signs and I&O's Vital Signs: 98.0, 86, 20, 98, 146/75 Intake and Output: Intake & Output 08/14/16 08/15/16 08/16/16 08/17/16 11:59 11:59 11:59 11:59 Intake Total 125 782 Balance 125 782 - Physical Exam Oriented: Normal Eyes: Normal Ear: Normal Nose: Normal Throat: Normal Respiratory: Right (RUL wheezing), Wheezes (harsh wheezes and rhonchi to right upper lobe) Cardiovascular: Normal : Normal Auscultation: Bowel Sounds: Normal Tenderness: Normal Skin: Normal Musculoskeletal: Normal Psychiatric: Normal Mood Description: Calm, Appropriate Affect: Normal Speech Pattern: Clear, Appropriate - Laboratory and Diagnostics Result Diagrams: 08/16/16 04:35 08/16/16 04:35 Labs: Laboratory WBC 17.5 X10^3/uL (3.6-10.0) H 08/16/16 04:35 RBC 3.38 X10^6/uL (3.5-5.4) L 08/16/16 04:35 Hgb 11.0 g/dL (12.0-16.0) L 08/16/16 04:35 Hct 32.7 % (36.0-47.0) L 08/16/16 04:35 MCV 96.8 fL (80.0-100.0) 08/16/16 04:35 MCH 32.7 pg (27.0-34.0) 08/16/16 04:35 MCHC 33.8 g/dL (33.0-35.0) 08/16/16 04:35 RDW 14.9 % (11.6-16.5) 08/16/16 04:35 Plt Count 277 X10^3/uL (150.0-450.0) 08/16/16 04:35 MPV 8.3 fL (7.4-11.0) 08/16/16 04:35 Neut % 82.1 % (42.0-75.0) H 08/16/16 04:35 Lymph % 5.8 % (21.0-51.0) L 08/16/16 04:35 [place] % 10.0 % (0.0-13.0) 08/16/16 04:35 Eos % 1.7 % (0.9-2.9) 08/16/16 04:35 Baso % 0.4 % (0.2-1.0) 08/16/16 04:35 Neut # 14.4 x10^3/uL (2.2-4.8) H 08/16/16 04:35 Lymph # 1.0 X10^3/uL (1.3-2.9) L 08/16/16 04:35 [place] # 1.8 x10^3/uL (0.3-0.8) H 08/16/16 04:35 Eos # 0.3 x10^3/uL (0.0-0.2) H 08/16/16 04:35 Baso # 0.1 X10^3/uL (0.0-0.1) 08/16/16 04:35 Absolute Nucleated RBC 0.0 /100WBC 08/16/16 04:35 ESR 62 MM/HOUR (0-20) H 08/16/16 04:35 D-Dimer 3790 ng/mL (0-400) H* 08/13/16 11:36 Sodium 136 mmol/L (136-145) 08/16/16 04:35 Corrected Sodium TNP 08/16/16 04:35 Potassium 4.4 mmol/L (3.5-5.1) 08/16/16 04:35 Chloride 97 mmol/L (98-107) L 08/16/16 04:35 Carbon Dioxide 34.0 mmol/L (21-32) H 08/16/16 04:35 BUN 8 mg/dL (7-18) 08/16/16 04:35 Creatinine 0.72 mg/dL (0.55-1.02) 08/16/16 04:35 Est GFR (MDRD) Af Amer > 60 (>60) 08/16/16 04:35 Est GFR (MDRD) Non-Af > 60 (>60) 08/16/16 04:35 Glucose 102 mg/dL (65-99) H 08/16/16 04:35 Calcium 8.9 mg/dL (8.5-10.1) 08/16/16 04:35 Corrected Calcium 10.4 mg/dL (8.5-10.1) H 08/16/16 04:35 Total Bilirubin 0.60 mg/dL (0.2-1.0) 08/16/16 04:35 AST 24 Units/L (15-37) 08/16/16 04:35 ALT 14 Units/L (12-78) 08/16/16 04:35 Alkaline Phosphatase 67 Units/L (46-116) 08/16/16 04:35 Creatine Kinase 45 Units/L (26-192) 08/14/16 00:50 CK-MB (CK-2) < 1.0 ng/mL (0-4.0) 08/14/16 00:50 CK/CKMB % Calc 2.2 % (<4) 08/14/16 00:50 Troponin I < 0.02 ng/mL (0-1.5) 08/14/16 00:50 C-Reactive Protein 80.50 mg/L (0-3.0) H 08/16/16 04:35 B-Natriuretic Peptide 295 pg/mL (0-79) H 08/13/16 11:36 Total Protein 6.2 g/dL (6.4-8.2) L 08/16/16 04:35 Albumin 2.1 g/dL (3.4-5.0) L 08/16/16 04:35 Globulin 4.1 g/dL (2.5-4.5) 08/16/16 04:35 Albumin/Globulin Ratio 0.5 Ratio (1.1-2.1) L 08/16/16 04:35 Triglycerides 92 mg/dL (0-150) 08/14/16 07:45 Cholesterol 146 mg/dL (0-200) 08/14/16 07:45 LDL Cholesterol, Calc 105 mg/dL (0-100) H 08/14/16 07:45 HDL Cholesterol 23 mg/dL (40-60) L 08/14/16 07:45 Cholesterol/HDL Ratio 6.3 (0.0-5.0) H 08/14/16 07:45 Specimen Type Clean catch urine 08/13/16 15:46 Urine Color Yellow (YELLOW) 08/13/16 15:46 Urine Appearance Hazy (CLEAR) 08/13/16 15:46 Urine pH 5.0 (5.0 - 8.0) 08/13/16 15:46 Ur Specific [place] 1.015 (1.000-1.030) 08/13/16 15:46 Urine Protein 1+ (NEGATIVE) 08/13/16 15:46 Urine Glucose (UA) Negative (NEGATIVE) 08/13/16 15:46 Urine Ketones Negative (NEGATIVE) 08/13/16 15:46 Urine Occult Blood 1+ (NEGATIVE) 08/13/16 15:46 Urine Nitrite Negative (NEGATIVE) 08/13/16 15:46 Urine Bilirubin Negative (NEGATIVE) 08/13/16 15:46 Urine Urobilinogen Normal (NORMAL) 08/13/16 15:46 Ur Leukocyte Esterase 3+ (NEGATIVE) 08/13/16 15:46 Urine RBC 0-3 /HPF (NEGATIVE) 08/13/16 15:46 Urine WBC 28-32 /HPF (NEGATIVE) 08/13/16 15:46 Ur Squamous Epith Cells Few /HPF (NEGATIVE) 08/13/16 15:46 Amorphous Sediment Trace /HPF (NEGATIVE) 08/13/16 15:46 Urine Bacteria Trace /HPF (NEGATIVE) 08/13/16 15:46 Ur Culture Indicated? Yes/culture set up 08/13/16 15:46 Digoxin 1.21 ng/mL (0.9-2) 08/16/16 04:35 - Plan (1) Respiratory distress Status: Acute Plan: Supplemental oxygen continue to monitor (2) Acute bronchitis Status: Acute Qualifiers: Bronchitis organism: B Plan: Fortaz, Levaquin IV, Duonebs and supplemental oxygen (3) CHF (congestive heart failure) Status: Chronic Qualifiers: Congestive heart failure type: C Congestive heart failure chronicity: C Plan: continue to monitor (4) Diabetes mellitus Status: Chronic Qualifiers: Diabetes mellitus type: D Diabetes mellitus complication status: D Diabetes mellitus complication detail: D Diabetic retinopathy severity: D Proliferative retinopathy type: P Diabetes mellitus macular edema: D Diabetes mellitus fpc insulin use: D Laterality: L Chronic kidney disease stage: C Plan: OTBS AC&HS with SSC resume home medication januvia (5) Hypertension Status: Chronic Qualifiers: Hypertension type: essential hypertension Qualified Code(s): I10 - Essential (primary) hypertension Plan: monitor resum home medication toprol XL, Lasix (6) Hypoalbuminemia Status: Acute Plan: IV ALbumin Daily
[2016-08-16] MEDS: FORTAZ or TAZICEF INJ 1 GM in NS 50 ML IV + SPIKE MINIBAG* 50 ML IV SCH ×3 (12:46→21:27)
[2016-08-16] MEDS: NS 1000 ML 1,000 ML IV SCH (16:42)
[2016-08-16] MEDS: NORCO 10/325 TAB PO PRN ×2 (16:50→16:53)
[2016-08-16] MEDS: REQUIP PO SCH (21:28)
[2016-08-16] MEDS: ZOFRAN INJ 4 MG VIAL IVP PRN (21:29)
[2016-08-16] MEDS: COLACE CAP 100 MG PO SCH (21:29)
[2016-08-16] MEDS: ASPIRIN 81 MG CHEWTAB PO SCH (21:29)
[2016-08-16] MEDS: NIASPAN ER TAB 500 MG PO SCH (21:29)
[2016-08-16] MEDS: LEVEMIR SC SCH (21:35)
[2016-08-16] MEDS: SNACK - Diabetic Appropriate PO SCH (22:09)
[2016-08-17] MEDS: DUONEB 0.5 MG/3 MG NEB SCH ×6 (00:59→21:03)
[2016-08-17] MEDS: NEURONTIN CAP 300 MG PO SCH ×3 (05:25→21:37)
[2016-08-17] MEDS: FORTAZ or TAZICEF INJ 1 GM in NS 50 ML IV + SPIKE MINIBAG* 50 ML IV SCH ×3 (05:26→21:33)
[2016-08-17 05:47] LABS: ALANINE AMINOTRANSFERASE 16 Units/L (12-78); ALBUMIN 2.6 g/dL (3.4-5.0); ALKALINE PHOSPHATASE 64 Units/L (46-116); ASPARTATE AMINO TRANSFERASE 27 Units/L (15-37); BLOOD UREA NITROGEN 9 mg/dL (7-18); CALCIUM 9.1 mg/dL (8.5-10.1); CARBON DIOXIDE 31.1 mmol/L (21-32); CHLORIDE 96 mmol/L (98-107); COR CA(FOR HYPOALB) 10.2 mg/dL (8.5-10.1); GLUCOSE 75 mg/dL (65-99); SODIUM 134 mmol/L (136-145); TOTAL PROTEIN 6.6 g/dL (6.4-8.2); eGFR BLACK RACES > 60 (>60); eGFR NON BLACK RACES > 60 (>60)
[2016-08-17 06:19] LABS: BASOPHILS # (AUTO) 0.2 X10^3/uL (0.0-0.1); BASOPHILS % (AUTO) 0.9 % (0.2-1.0); EOSINOPHILS # (AUTO) 0.2 x10^3/uL (0.0-0.2); EOSINOPHILS % (AUTO) 1.2 % (0.9-2.9); HEMATOCRIT 32.3 % (36.0-47.0); HEMOGLOBIN 10.9 g/dL (12.0-16.0); LYMPHOCYTES # (AUTO) 0.9 X10^3/uL (1.3-2.9); MEAN CORPUSCULAR HEMOGLOBIN 32.8 pg (27.0-34.0); MEAN CORPUSCULAR HGB CONC 33.8 g/dL (33.0-35.0); MEAN CORPUSCULAR VOLUME 97.2 fL (80.0-100.0); MEAN PLATELET VOLUME 8.8 fL (7.4-11.0); MONOCYTES # (AUTO) 1.7 x10^3/uL (0.3-0.8); MONOCYTES % (AUTO) 9.1 % (0.0-13.0); NEUTROPHILS # (AUTO) 15.2 x10^3/uL (2.2-4.8); NEUTROPHILS % (AUTO) 83.8 % (42.0-75.0); PLATELET COUNT 282 X10^3/uL (150.0-450.0); RED BLOOD COUNT 3.32 X10^6/uL (3.5-5.4); RED CELL DISTRIBUTION WIDTH 15.1 % (11.6-16.5); WHITE BLOOD COUNT 18.2 X10^3/uL (3.6-10.0)
[2016-08-17] MEDS: ALBUMIN HUMAN 25%- 100ML 100 ML IV SCH (08:29)
[2016-08-17] MEDS: VITAMIN D3 PO SCH (08:30)
[2016-08-17] MEDS: MYLICON TAB 80 MG CHEW PO SCH (08:31)
[2016-08-17] MEDS: SYNTHROID 100 mcg TAB PO SCH (08:32)
[2016-08-17] MEDS: TOPROL XL PO SCH (08:32)
[2016-08-17] MEDS: HEMOCYTE-PLUS PO SCH (08:33)
[2016-08-17] MEDS: LANOXIN PO SCH (08:33)
[2016-08-17] MEDS: FOLIC ACID TAB 1 MG PO SCH (08:33)
[2016-08-17] MEDS: PREVACID PO SCH (08:35)
[2016-08-17] MEDS: PLAVIX PO SCH (08:35)
[2016-08-17] MEDS: JANUVIA PO SCH (08:36)
[2016-08-17] MEDS: TUMS PO SCH (08:39)
[2016-08-17] MEDS: DIFLUCAN 200 MG IV PREMIX* 200 MG/100 ML BAG IV SCH (09:31)
[2016-08-17] MEDS: LEVAQUIN PREMIX IV 750 MG 750 MG/150 ML BAG IV SCH (10:48)
[2016-08-17] MEDS: NS 1000 ML 1,000 ML IV SCH (10:49)
[2016-08-17] MEDS: HumuLIN R SUBCUT PRN ×3 (11:42→21:39)
[2016-08-17] MEDS: NORCO 10/325 TAB PO PRN (12:11)
[2016-08-17] MEDS: ZOFRAN INJ 4 MG VIAL IVP PRN (17:34)
[2016-08-17] MEDS: LEVEMIR SC SCH (21:34)
[2016-08-17] MEDS: REQUIP PO SCH (21:36)
[2016-08-17] MEDS: ASPIRIN 81 MG CHEWTAB PO SCH (21:36)
[2016-08-17] MEDS: SNACK - Diabetic Appropriate PO SCH (21:37)
[2016-08-17] MEDS: COLACE CAP 100 MG PO SCH (21:37)
[2016-08-17] MEDS: NIASPAN ER TAB 500 MG PO SCH (21:37)
[2016-08-17] MEDS: BUTT CREAM (COMPOUND) TOP PRN (21:44)
[2016-08-18] MEDS: DUONEB 0.5 MG/3 MG NEB SCH ×6 (00:47→21:26)
[2016-08-18 05:26] LABS: ALANINE AMINOTRANSFERASE 16 Units/L (12-78); ALBUMIN 2.5 g/dL (3.4-5.0); ALKALINE PHOSPHATASE 56 Units/L (46-116); ASPARTATE AMINO TRANSFERASE 27 Units/L (15-37); BLOOD UREA NITROGEN 12 mg/dL (7-18); CARBON DIOXIDE 30.2 mmol/L (21-32); CHLORIDE 97 mmol/L (98-107); COR CA(FOR HYPOALB) 10.2 mg/dL (8.5-10.1); CREATININE 0.67 mg/dL (0.55-1.02); GLUCOSE 64 mg/dL (65-99); SODIUM 134 mmol/L (136-145); TOTAL PROTEIN 6.4 g/dL (6.4-8.2); eGFR BLACK RACES > 60 (>60); eGFR NON BLACK RACES > 60 (>60)
[2016-08-18] MEDS: FORTAZ or TAZICEF INJ 1 GM in NS 50 ML IV + SPIKE MINIBAG* 50 ML IV SCH ×3 (05:29→21:32)
[2016-08-18] MEDS: NEURONTIN CAP 300 MG PO SCH ×3 (05:30→21:32)
[2016-08-18 06:16] LABS: BASOPHILS # (AUTO) 0.1 X10^3/uL (0.0-0.1); BASOPHILS % (AUTO) 0.3 % (0.2-1.0); EOSINOPHILS # (AUTO) 0.2 x10^3/uL (0.0-0.2); EOSINOPHILS % (AUTO) 0.9 % (0.9-2.9); HEMOGLOBIN 10.7 g/dL (12.0-16.0); LYMPHOCYTES # (AUTO) 0.8 X10^3/uL (1.3-2.9); LYMPHOCYTES % (AUTO) 4.3 % (21.0-51.0); MEAN CORPUSCULAR HEMOGLOBIN 32.3 pg (27.0-34.0); MEAN CORPUSCULAR HGB CONC 33.3 g/dL (33.0-35.0); MEAN CORPUSCULAR VOLUME 97.1 fL (80.0-100.0); MEAN PLATELET VOLUME 8.9 fL (7.4-11.0); MONOCYTES % (AUTO) 10.6 % (0.0-13.0); NEUTROPHILS # (AUTO) 15.8 x10^3/uL (2.2-4.8); NEUTROPHILS % (AUTO) 83.9 % (42.0-75.0); PLATELET COUNT 249 X10^3/uL (150.0-450.0); RED CELL DISTRIBUTION WIDTH 14.9 % (11.6-16.5); WHITE BLOOD COUNT 18.8 X10^3/uL (3.6-10.0)
[2016-08-18] MEDS: ALBUMIN HUMAN 25%- 100ML 100 ML IV SCH (08:10)
[2016-08-18] MEDS: MYLICON TAB 80 MG CHEW PO SCH (08:35)
[2016-08-18] MEDS: PREVACID PO SCH (08:35)
[2016-08-18] MEDS: TUMS PO SCH (08:36)
[2016-08-18] MEDS: SYNTHROID 100 mcg TAB PO SCH (08:37)
[2016-08-18] MEDS: HEMOCYTE-PLUS PO SCH (08:37)
[2016-08-18] MEDS: LANOXIN PO SCH (08:38)
[2016-08-18] MEDS: PLAVIX PO SCH (08:38)
[2016-08-18] MEDS: JANUVIA PO SCH (08:38)
[2016-08-18] MEDS: TOPROL XL PO SCH (08:38)
[2016-08-18] MEDS: FOLIC ACID TAB 1 MG PO SCH (08:38)
[2016-08-18] MEDS: VITAMIN D3 PO SCH (08:55)
[2016-08-18] MEDS: DIFLUCAN 200 MG IV PREMIX* 200 MG/100 ML BAG IV SCH (08:57)
[2016-08-18] MEDS: NS 1000 ML 1,000 ML IV SCH (09:01)
[2016-08-18] MEDS: LEVAQUIN PREMIX IV 750 MG 750 MG/150 ML BAG IV SCH (10:15)
--- NOTE | 2016-08-18 11:57 | RAD ---
HISTORY: Respiratory distress , weakness Study: AP chest Comparison: 08/16/2016 Findings: There has been mild interval increased interstitial opacities noted bilaterally with patchy airspace opacity in the right upper lobe. Cardiac silhouette is mildly enlarged. Patient status post right s houlder arthroplasty, with angulated in fracture of the proximal right humerus. There is a trace left pleural effusion suggested. IMPRESSION: 1. Mild interval increased bilateral interstitial opacities with patchy airspace density in the righ t upper lobe. Findings are nonspecific and may be secondary to mild, asymmetric interstitial pulmona ry edema or atypical infection.. 2. Other findings as above Reported By:
[2016-08-18] MEDS ORDERED: CITROMA PO ONE (14:52)
[2016-08-18] MEDS: ZOFRAN INJ 4 MG VIAL IVP PRN (16:06)
[2016-08-18] MEDS: SNACK - Diabetic Appropriate PO SCH ×2 (20:30→20:35)
[2016-08-18] MEDS: LEVEMIR SC SCH (21:00)
[2016-08-18] MEDS: NORCO 10/325 TAB PO PRN (21:30)
[2016-08-18] MEDS: REQUIP PO SCH (21:30)
[2016-08-18] MEDS: ROBITUSSIN DM PO PRN (21:30)
[2016-08-18] MEDS: ASPIRIN 81 MG CHEWTAB PO SCH (21:32)
[2016-08-18] MEDS: NIASPAN ER TAB 500 MG PO SCH (21:32)
[2016-08-18] MEDS: COLACE CAP 100 MG PO SCH (21:32)
[2016-08-19] MEDS: DUONEB 0.5 MG/3 MG NEB SCH ×5 (00:57→16:18)
[2016-08-19 05:32] LABS: ALANINE AMINOTRANSFERASE 17 Units/L (12-78); ALBUMIN 2.8 g/dL (3.4-5.0); ALKALINE PHOSPHATASE 63 Units/L (46-116); ASPARTATE AMINO TRANSFERASE 23 Units/L (15-37); BLOOD UREA NITROGEN 14 mg/dL (7-18); CALCIUM 9.3 mg/dL (8.5-10.1); CARBON DIOXIDE 32.9 mmol/L (21-32); CHLORIDE 94 mmol/L (98-107); COR CA(FOR HYPOALB) 10.3 mg/dL (8.5-10.1); COR NA(FOR HYPERGLY) 136 mmol/L (136-145); CREATININE 0.73 mg/dL (0.55-1.02); GLUCOSE 220 mg/dL (65-99); SODIUM 133 mmol/L (136-145); TOTAL PROTEIN 6.6 g/dL (6.4-8.2); eGFR BLACK RACES > 60 (>60); eGFR NON BLACK RACES > 60 (>60)
[2016-08-19 05:46] LABS: BASOPHILS # (AUTO) 0.1 X10^3/uL (0.0-0.1); BASOPHILS % (AUTO) 0.4 % (0.2-1.0); EOSINOPHILS # (AUTO) 0.2 x10^3/uL (0.0-0.2); EOSINOPHILS % (AUTO) 0.8 % (0.9-2.9); HEMATOCRIT 31.6 % (36.0-47.0); HEMOGLOBIN 10.7 g/dL (12.0-16.0); LYMPHOCYTES # (AUTO) 0.8 X10^3/uL (1.3-2.9); LYMPHOCYTES % (AUTO) 3.9 % (21.0-51.0); MEAN CORPUSCULAR HEMOGLOBIN 32.4 pg (27.0-34.0); MEAN CORPUSCULAR HGB CONC 33.7 g/dL (33.0-35.0); MEAN CORPUSCULAR VOLUME 96.1 fL (80.0-100.0); MEAN PLATELET VOLUME 8.5 fL (7.4-11.0); MONOCYTES % (AUTO) 9.5 % (0.0-13.0); NEUTROPHILS # (AUTO) 17.9 x10^3/uL (2.2-4.8); NEUTROPHILS % (AUTO) 85.4 % (42.0-75.0); PLATELET COUNT 246 X10^3/uL (150.0-450.0); RED BLOOD COUNT 3.29 X10^6/uL (3.5-5.4); RED CELL DISTRIBUTION WIDTH 14.8 % (11.6-16.5)
[2016-08-19 05:47] LABS: WHITE BLOOD COUNT 20.9 X10^3/uL (3.6-10.0)
[2016-08-19] MEDS: FORTAZ or TAZICEF INJ 1 GM in NS 50 ML IV + SPIKE MINIBAG* 50 ML IV SCH ×2 (05:58→14:41)
[2016-08-19] MEDS: NEURONTIN CAP 300 MG PO SCH ×2 (05:58→14:41)
[2016-08-19] MEDS: HumuLIN R SUBCUT PRN ×2 (06:21→12:13)
[2016-08-19] MEDS: ALBUMIN HUMAN 25%- 100ML 100 ML IV SCH (08:51)
[2016-08-19] MEDS: DIFLUCAN 200 MG IV PREMIX* 200 MG/100 ML BAG IV SCH (08:51)
[2016-08-19] MEDS: LEVAQUIN PREMIX IV 750 MG 750 MG/150 ML BAG IV SCH ×2 (08:51→09:45)
[2016-08-19] MEDS: TUMS PO SCH (08:52)
[2016-08-19] MEDS: VITAMIN D3 PO SCH ×2 (08:52→09:16)
[2016-08-19] MEDS: PREVACID PO SCH (08:53)
[2016-08-19] MEDS: HEMOCYTE-PLUS PO SCH (08:54)
[2016-08-19] MEDS: TOPROL XL PO SCH (08:54)
[2016-08-19] MEDS: MYLICON TAB 80 MG CHEW PO SCH ×2 (08:54→09:17)
[2016-08-19] MEDS: LANOXIN PO SCH (08:54)
[2016-08-19] MEDS: SYNTHROID 100 mcg TAB PO SCH (08:54)
[2016-08-19] MEDS: JANUVIA PO SCH (08:54)
[2016-08-19] MEDS: FOLIC ACID TAB 1 MG PO SCH (08:55)
[2016-08-19] MEDS: PLAVIX PO SCH (08:56)
[2016-08-19] MEDS ORDERED: VANCOMYCIN 1 GM PREMIX (ADDVANTAGE) 250 ML IV SCH (10:00)
[2016-08-19] MEDS: NS 1000 ML 1,000 ML IV SCH (10:39)
[2016-08-19] MEDS: ZOFRAN INJ 4 MG VIAL IVP PRN (10:44)
--- NOTE | 2016-08-19 10:48 | PCM.PROG ---
Progress Note - Progress Note for Day of Date: 08/19/16 - Subjective Subjective: Patient is a 86yo female who was admitted with resp distress, acute bronchitis and. Over the weekend patient WBC began to increase with this am WBC showing 20.9 we are going to discontinue her Levaquin and start on vancomycin and continue her fortaz. Patient is still noted with some faint right upper lobe wheezing which is improved from last week. Vital signs this am 98.7, 85, 20 , 100%, 162/52. Labs are within normal limits with the exception of WBC 20.9, RBC 3.29, Hgb 10.7, Hct 31.6, Neut% 85.4, Lymph% 3.9, Eos% 0.8, Neut# 17.9, Lymph# 0.8, [place]# 2.0, Sodium 133, Chloride 94, Carbon Dioxide 32.9, Glucose 220 , Albumin 2.8, Albumin/Globulin Ratio 0.7. Chest Xray on 08/18 shows Mild interval increased bilateral interstitial opacities with patchy airspace density in the right upper lobe. Findings are non specific and may be secondary to mild, asymmetric interstitial pulmonary edema or atypical infection. We will follow up with patient in the morning with repeat labs and chest xray. And also continue to work on fpc placement. - Past Medical Family Social History Past Med/Fam/Surg Hx: No changes since H&P Allergies: Allergies MS Penicillins [Penicillins] Allergy (Verified 06/16/15 13:30) - Review of Systems ROS: No change since H&P - Vital Signs and I&O's Vital Signs: Temperature 98.7 F Pulse Rate [Apical] 85 Pulse Rate 86 Respiratory Rate 20 Blood Pressure [Left Arm] 151/84 Blood Pressure [Right Arm] 162/52 O2 Sat by Pulse Oximetry 99 Intake and Output: Intake & Output 08/16/16 08/17/16 08/18/16 08/19/16 11:59 11:59 11:59 11:59 Intake Total 782 1311 1707 1767 Balance 782 1311 1707 1767 - Physical Exam Oriented: Normal Eyes: Normal Ear: Normal Nose: Normal Throat: Normal Respiratory: Right (RUL wheezing), Wheezes (harsh wheezes and rhonchi to right upper lobe) Cardiovascular: Normal : Normal Auscultation: Bowel Sounds: Normal Tenderness: Normal Skin: Normal Musculoskeletal: Normal Psychiatric: Normal Mood Description: Calm, Appropriate Affect: Normal Speech Pattern: Clear, Appropriate - Laboratory and Diagnostics Result Diagrams: 08/19/16 04:55 08/19/16 04:55 Labs: Laboratory WBC 20.9 X10^3/uL (3.6-10.0) H* 08/19/16 04:55 RBC 3.29 X10^6/uL (3.5-5.4) L 08/19/16 04:55 Hgb 10.7 g/dL (12.0-16.0) L 08/19/16 04:55 Hct 31.6 % (36.0-47.0) L 08/19/16 04:55 MCV 96.1 fL (80.0-100.0) 08/19/16 04:55 MCH 32.4 pg (27.0-34.0) 08/19/16 04:55 MCHC 33.7 g/dL (33.0-35.0) 08/19/16 04:55 RDW 14.8 % (11.6-16.5) 08/19/16 04:55 Plt Count 246 X10^3/uL (150.0-450.0) 08/19/16 04:55 MPV 8.5 fL (7.4-11.0) 08/19/16 04:55 Neut % 85.4 % (42.0-75.0) H 08/19/16 04:55 Lymph % 3.9 % (21.0-51.0) L 08/19/16 04:55 [place] % 9.5 % (0.0-13.0) 08/19/16 04:55 Eos % 0.8 % (0.9-2.9) L 08/19/16 04:55 Baso % 0.4 % (0.2-1.0) 08/19/16 04:55 Neut # 17.9 x10^3/uL (2.2-4.8) H 08/19/16 04:55 Lymph # 0.8 X10^3/uL (1.3-2.9) L 08/19/16 04:55 [place] # 2.0 x10^3/uL (0.3-0.8) H 08/19/16 04:55 Eos # 0.2 x10^3/uL (0.0-0.2) 08/19/16 04:55 Baso # 0.1 X10^3/uL (0.0-0.1) 08/19/16 04:55 Absolute Nucleated RBC 0.0 /100WBC 08/19/16 04:55 ESR 62 MM/HOUR (0-20) H 08/16/16 04:35 D-Dimer 3790 ng/mL (0-400) H* 08/13/16 11:36 Sodium 133 mmol/L (136-145) L 08/19/16 04:55 Corrected Sodium 136 mmol/L (136-145) 08/19/16 04:55 Potassium 4.4 mmol/L (3.5-5.1) 08/19/16 04:55 Chloride 94 mmol/L (98-107) L 08/19/16 04:55 Carbon Dioxide 32.9 mmol/L (21-32) H 08/19/16 04:55 BUN 14 mg/dL (7-18) 08/19/16 04:55 Creatinine 0.73 mg/dL (0.55-1.02) 08/19/16 04:55 Est GFR (MDRD) Af Amer > 60 (>60) 08/19/16 04:55 Est GFR (MDRD) Non-Af > 60 (>60) 08/19/16 04:55 Glucose 220 mg/dL (65-99) H 08/19/16 04:55 Calcium 9.3 mg/dL (8.5-10.1) 08/19/16 04:55 Corrected Calcium 10.3 mg/dL (8.5-10.1) H 08/19/16 04:55 Total Bilirubin 1.00 mg/dL (0.2-1.0) 08/19/16 04:55 AST 23 Units/L (15-37) 08/19/16 04:55 ALT 17 Units/L (12-78) 08/19/16 04:55 Alkaline Phosphatase 63 Units/L (46-116) 08/19/16 04:55 Creatine Kinase 45 Units/L (26-192) 08/14/16 00:50 CK-MB (CK-2) < 1.0 ng/mL (0-4.0) 08/14/16 00:50 CK/CKMB % Calc 2.2 % (<4) 08/14/16 00:50 Troponin I < 0.02 ng/mL (0-1.5) 08/14/16 00:50 C-Reactive Protein 80.50 mg/L (0-3.0) H 08/16/16 04:35 B-Natriuretic Peptide 295 pg/mL (0-79) H 08/13/16 11:36 Total Protein 6.6 g/dL (6.4-8.2) 08/19/16 04:55 Albumin 2.8 g/dL (3.4-5.0) L 08/19/16 04:55 Globulin 3.8 g/dL (2.5-4.5) 08/19/16 04:55 Albumin/Globulin Ratio 0.7 Ratio (1.1-2.1) L 08/19/16 04:55 Triglycerides 92 mg/dL (0-150) 08/14/16 07:45 Cholesterol 146 mg/dL (0-200) 08/14/16 07:45 LDL Cholesterol, Calc 105 mg/dL (0-100) H 08/14/16 07:45 HDL Cholesterol 23 mg/dL (40-60) L 08/14/16 07:45 Cholesterol/HDL Ratio 6.3 (0.0-5.0) H 08/14/16 07:45 Specimen Type Clean catch urine 08/13/16 15:46 Urine Color Yellow (YELLOW) 08/13/16 15:46 Urine Appearance Hazy (CLEAR) 08/13/16 15:46 Urine pH 5.0 (5.0 - 8.0) 08/13/16 15:46 Ur Specific [place] 1.015 (1.000-1.030) 08/13/16 15:46 Urine Protein 1+ (NEGATIVE) 08/13/16 15:46 Urine Glucose (UA) Negative (NEGATIVE) 08/13/16 15:46 Urine Ketones Negative (NEGATIVE) 08/13/16 15:46 Urine Occult Blood 1+ (NEGATIVE) 08/13/16 15:46 Urine Nitrite Negative (NEGATIVE) 08/13/16 15:46 Urine Bilirubin Negative (NEGATIVE) 08/13/16 15:46 Urine Urobilinogen Normal (NORMAL) 08/13/16 15:46 Ur Leukocyte Esterase 3+ (NEGATIVE) 08/13/16 15:46 Urine RBC 0-3 /HPF (NEGATIVE) 08/13/16 15:46 Urine WBC 28-32 /HPF (NEGATIVE) 08/13/16 15:46 Ur Squamous Epith Cells Few /HPF (NEGATIVE) 08/13/16 15:46 Amorphous Sediment Trace /HPF (NEGATIVE) 08/13/16 15:46 Urine Bacteria Trace /HPF (NEGATIVE) 08/13/16 15:46 Ur Culture Indicated? Yes/culture set up 08/13/16 15:46 Digoxin 1.21 ng/mL (0.9-2) 08/16/16 04:35 Radiology Reviewed: Yes - Plan (1) Respiratory distress Status: Acute Plan: Supplemental oxygen continue to monitor (2) Acute bronchitis Status: Acute Qualifiers: Bronchitis organism: B Plan: Duonebs and supplemental oxygen (3) CHF (congestive heart failure) Status: Chronic Qualifiers: Congestive heart failure type: C Congestive heart failure chronicity: C Plan: continue to monitor (4) Diabetes mellitus Status: Chronic Qualifiers: Diabetes mellitus type: D Diabetes mellitus complication status: D Diabetes mellitus complication detail: D Diabetic retinopathy severity: D Proliferative retinopathy type: P Diabetes mellitus macular edema: D Diabetes mellitus half-way insulin use: D Laterality: L Chronic kidney disease stage: C Plan: OTBS AC&HS with SSC resume home medication januvia (5) Hypertension Status: Chronic Qualifiers: Hypertension type: essential hypertension Qualified Code(s): I10 - Essential (primary) hypertension Plan: monitor resum home medication toprol XL, Lasix (6) Hypoalbuminemia Status: Acute Plan: IV ALbumin Daily (7) Pneumonia Status: Acute Qualifiers: Pneumonia type: P Aspiration pneumonia type: A Laterality: L Lung location: L Plan: Vancomycin and fortaz
[2016-08-19] MEDS ORDERED: DULCOLAX SUPPOSITORY 10 MG RECTAL ONE (11:05)
[2016-08-19] MEDS ORDERED: FLEET ENEMA ADULT PR ONE (13:38)
[2016-08-19] MEDS ORDERED: FLEET ENEMA ADULT ONE (13:42)
--- NOTE | 2016-08-19 16:41 | DR.CARTERD ---
- Discharge Summary for: Discharge Summary for Date of:: 08/19/16 - Admission Date Date of Admission: 08/13/16 - Admission Diagnoses Admission Diagnosis: Respiratory Distress. Acute Bronchitis. CHF. Hypertension. Diabetes Mellitus Type 2. Dementia - Discharge Date Discharge Date: 08/19/16 - Discharge Diagnoses Discharge Diagnosis: Respiratory Distress Acute Bronchitis CHF Hypertension Diabetes Mellitus Type 2 Dementia - Hospital Course Hospital Course: Patient is a 86yo female who was admitted with resp distress, acute bronchitis and. Patient started on NS@ 50ml/hr and Levaquin IV as well as duonebs. Home medications were resumed with the exception of levemir due to decreased appetite. Patient physical exam revealed right upper lobe wheezing and was receiving duonebs and supplemental oxygen. Family voiced concerns early on of not being able to care for her at home and would like to see about intermediate placement and we worked with case management to help arrange this for her. WBC increased to 17.5 on 08/16 so we added fortaz in addition to the Levaquin as well as some hypoalbuminemia for which we started albumin IV Daily. Over the weekend patient WBC began to increase with this am WBC showing 20.9 we are going to discontinue her Levaquin and start on vancomycin and continue her fortaz. Vital signs this am 98.7, 85, 20, 100%, 162/52. Labs are within normal limits with the exception of WBC 20.9, RBC 3.29, Hgb 10.7, Hct 31.6, Neut% 85.4 , Lymph% 3.9, Eos% 0.8, Neut# 17.9, Lymph# 0.8, [place]# 2.0, Sodium 133, Chloride 94, Carbon Dioxide 32.9, Glucose 220, Albumin 2.8, Albumin/Globulin Ratio 0.7. Chest Xray on 08/18 shows Mild interval increased bilateral interstitial opacities with patchy airspace density in the right upper lobe. Findings are non specific and may be secondary to mild, asymmetric interstitial pulmonary edema or atypical infection. Patient states she is feeling better and they have a room available for her at the intermediate. Patient has not had a bowel movement in several days so we gave her a dulcolax suppository and fleets enema which allowed for a successful bowel movement. Patient is being discharge to [facility] in stable condition she is to continue her home medications with the exception of levemir 55units in am and Humolog sliding scale which will be changed to regular insulin sliding scale and the addition of Colace 200mg at bedtime and miralax 17gm at bedtime. Patient will also receive vancomycin 1gm IV q12hr for 12 weeks to finish clearing up her infection. Labs: . Labs are within normal limits with the exception of WBC 20.9, RBC 3.29, Hgb 10.7, Hct 31.6, Neut% 85.4, Lymph% 3.9, Eos% 0.8, Neut# 17.9, Lymph# 0.8, [place]# 2.0, Sodium 133, Chloride 94, Carbon Dioxide 32.9, Glucose 220, Albumin 2.8, Albumin/Globulin Ratio 0.7 - Discharge Medications Discharge Medications: Aspirin [ASPIRIN 81 MG [place] *] 81 mg PO HS 08/13/16 [History] Clopidogrel Bisulfate [PLAVIX TAB 75 MG *] 75 mg PO DAILY 08/13/16 [History] Docusate Sodium [COLACE CAP 100 MG *] 200 mg PO HS #60 cap 08/19/16 [Rx] Polyethylene Glycol Pwd Ud [MIRALAX POWDER (17 GM DOSE) *] 17 gm PO HS #30 saranya 08/19/16 [Rx] - Discharge Disposition Discharge Disposition: [facility] with outpatient vancomycin
[2016-08-19 17:03] VITALS: BP 132/54
== END 2016-08-19 17:00 | DRG 204 ==
LOC: ER 10:51 → ICU 13:45 → OBSVTOIN 08-15 06:50
PROVIDERS: ADMIT Internal Medicine; ATTEND Internal Medicine
DX: R06.00 Dyspnea, unspecified (principal); J20.8 Acute bronchitis due to other specified organisms; I50.9 Heart failure, unspecified; R07.89 Other chest pain; I10 Essential (primary) hypertension; R00.1 Bradycardia, unspecified; R94.31 Abnormal electrocardiogram [ECG] [EKG]; Z66 Do not resuscitate; R06.02 Shortness of breath; I48.91 Unspecified atrial fibrillation; E11.65 Type 2 diabetes mellitus with hyperglycemia; I51.7 Cardiomegaly; D72.828 Other elevated white blood cell count; E78.2 Mixed hyperlipidemia; F03.90 Unspecified dementia, unspecified severity, without behavioral disturbance, psychotic disturbance, mood disturbance, and anxiety; R26.89 Other abnormalities of gait and mobility; Z79.4 Long term (current) use of insulin; Z86.73 Personal history of transient ischemic attack (TIA), and cerebral infarction without residual deficits
CPT/HCPCS: 36415; 71010; 80053; 80061; 80162; 81001; 82550; 82553; 83880; 84484; 85025; 85378; 85652; 86140; 87040; 87070; 87086; 87205; 93005; 93010; 94640; 96365; 96367; 96374; 97535; 99231; 99284; A4216; A4222; P9047; 1956; G0378; J0713; J1450; J1815; J1956; J2405; J3370; J7620

== ENCOUNTER 2016-12-21 23:52 | Inpatient (IN) | payer OTHER ==
--- NOTE | 2016-12-22 00:07 | DR.GENAD ---
HPI - PCP Primary Care Physician: Jason - Complaint/Symptoms Chief Complaint Doctors Comments: Patient has been treated for gum pain with topical suspension,now c/o mouth pain. She is not able to use medication as planned. PMH - PMH Past Medical History: CHF, CVA, Diabetes, Hypertension Past Surgical History: Yes Surgical History: Angioplasty/Stents, Hysterectomy, Ortho Surgery, Tonsillectomy - Family History Family Medical History: Diabetes Mellitus, CA, Sudden Cardiac - Social History Do you use any recreational Drugs:: No ROS - Review of Systems Eyes: No Symptoms Reported ENTM: No Symptoms Reported Respiratoy: No Symptoms Reported Cardiovascular: No Symptoms Reported Gastrointestinal/Abdominal: No Symptoms Reported Genitourinary: No Symptoms Reported Neurological: No Symptoms Reported Musculoskeletal: No Symptoms Reported Integumentary: No Symptoms Reported Hematologic/Lymphatic: No Symptoms Reported Endocrine: No Symptoms Reported Psychiatric: No Symptoms Reported All Other Systems: Reviewed and Negative PE - Vital Signs Vitals: Temperature 98.6 F Pulse Rate [Right Brachial] 72 Pulse Rate 74 Respiratory Rate 16 Blood Pressure [Right Calf] 120/62 Blood Pressure [Left Calf] 161/57 Blood Pressure [Left Arm] 158/78 Blood Pressure [Right Arm] 132/54 Blood Pressure [Right Radial 124/65 Artery] Blood Pressure 176/73 O2 Sat by Pulse Oximetry 100 - General General Appearance: Alert, In No Apparent Distress - Head Head Exam: Normal Inspection, Atraumatic - Eyes Eye exam: Normal Appearance, PERRL, EOMI - ENT ENT Exam: Normal Exam External Ear Exam: Normal External Inspection TM/Canal Exam: Bilateral Normal Nose Exam: Normal Nose Exam Mouth Exam: Normal Inspection Throat Exam: Normal Inspection - Neck Neck Exam: Normal Inspection - Chest Chest Inspection: Normal Inspection, Symmetric Chest Wall Rise - Respiratory Respiratory Exam: Normal Lung Sounds Bilat Respiratory Exam: Bilateral Clear to Auscultation - Cardiovascular Cardiovascular Exam: Regular Rate, Normal Rhythm - Abdominal Exam Abdominal Exam: Normal Inspection Abdominal Tenderness: negative: RUQ, RLQ, LUQ, LLQ, Epigastrium, Suprapubic, Diffuse, Mild, Moderate, Severe, Other - Extremities Extremities Exam: Normal Inspection - Back Back Exam: Normal Inspection - Neurologic Neurological Exam: Alert, Oriented X3, CN II-XII Intact - Psychiatric Psychiatric Exam: Normal Affect Course - Reevaluation 1st: Unchanged ROR - Labs Reviewed Result Diagrams: 12/22/16 01:25 12/22/16 01:25 Laboratory: WBC 1.1 X10^3/uL (3.6-10.0) L* 12/22/16 01:25 RBC 2.83 X10^6/uL (3.5-5.4) L 12/22/16 01:25 Hgb 9.3 g/dL (12.0-16.0) L 12/22/16 01:25 Hct 27.4 % (36.0-47.0) L 12/22/16 01:25 MCV 96.7 fL (80.0-100.0) 12/22/16 01:25 MCH 32.7 pg (27.0-34.0) 12/22/16 01:25 MCHC 33.9 g/dL (33.0-35.0) 12/22/16 01:25 RDW 18.2 % (11.6-16.5) H 12/22/16 01:25 Plt Count 9 X10^3/uL (150.0-450.0) L* 12/22/16 01:25 Plt Count Comment Decreased (ADEQUATE) A 12/22/16 01:25 MPV 8.6 fL (7.4-11.0) 12/22/16 01:25 Neut % 5.1 % (42.0-75.0) L 12/22/16 01:25 Lymph % 91.8 % (21.0-51.0) H 12/22/16 01:25 [place] % 1.9 % (0.0-13.0) 12/22/16 01:25 Eos % 1.2 % (0.9-2.9) 12/22/16 01:25 Baso % 0 % (0.2-1.0) L 12/22/16 01:25 Neut # 0.1 x10^3/uL (2.2-4.8) L 12/22/16 01:25 Lymph # 1.0 X10^3/uL (1.3-2.9) L 12/22/16 01:25 [place] # 0 x10^3/uL (0.3-0.8) L 12/22/16 01:25 Eos # 0.0 x10^3/uL (0.0-0.2) 12/22/16 01:25 Baso # 0.0 X10^3/uL (0.0-0.1) 12/22/16 01:25 Absolute Nucleated RBC 1.0 /100WBC 12/22/16 01:25 Total Counted 50 12/22/16 01:25 Neutrophils % (Manual) 4 % (39-76) L 12/22/16 01:25 Lymphocytes % (Manual) 92 % (13-43) H 12/22/16 01:25 Monocytes % (Manual) 4 % (4-9) 12/22/16 01:25 Plt Clumps, EDTA Few 12/22/16 01:25 Plt Morphology Comment Abnormal (NORMAL) A 12/22/16 01:25 Anisocytosis 1+ A 12/22/16 01:25 Sodium 138 mmol/L (136-145) 12/22/16 01:25 Corrected Sodium 140 mmol/L (136-145) 12/22/16 01:25 Potassium 3.6 mmol/L (3.5-5.1) 12/22/16 01:25 Chloride 98 mmol/L (98-107) 12/22/16 01:25 Carbon Dioxide 38.1 mmol/L (21-32) H 12/22/16 01:25 BUN 20 mg/dL (7-18) H 12/22/16 01:25 Creatinine 1.09 mg/dL (0.55-1.02) H 12/22/16 01:25 Est GFR (MDRD) Af Amer > 60 (>60) 12/22/16 01:25 Est GFR (MDRD) Non-Af 51 (>60) L 12/22/16 01:25 Glucose 180 mg/dL (65-99) H 12/22/16 01:25 Calcium 9.0 mg/dL (8.5-10.1) 12/22/16 01:25 Corrected Calcium 10.5 mg/dL (8.5-10.1) H 12/22/16 01:25 Total Bilirubin 1.60 mg/dL (0.2-1.0) H 12/22/16 01:25 AST 30 Units/L (15-37) 12/22/16 01:25 ALT 17 Units/L (12-78) 12/22/16 01:25 Alkaline Phosphatase 68 Units/L (46-116) 12/22/16 01:25 C-Reactive Protein 130.50 mg/L (0-3.0) H 12/22/16 01:25 Total Protein 5.8 g/dL (6.4-8.2) L 12/22/16 01:25 Albumin 2.1 g/dL (3.4-5.0) L 12/22/16 01:25 Globulin 3.7 g/dL (2.5-4.5) 12/22/16 01:25 Albumin/Globulin Ratio 0.6 Ratio (1.1-2.1) L 12/22/16 01:25 - Diagnosis Discharge Problem: 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
[2016-12-22 01:44] LABS: BASOPHILS % (AUTO) 0 % (0.2-1.0); MONOCYTES # (AUTO) 0 x10^3/uL (0.3-0.8)
[2016-12-22 01:53] LABS: ALANINE AMINOTRANSFERASE 17 Units/L (12-78); ALBUMIN 2.1 g/dL (3.4-5.0); ALKALINE PHOSPHATASE 68 Units/L (46-116); ASPARTATE AMINO TRANSFERASE 30 Units/L (15-37); BLOOD UREA NITROGEN 20 mg/dL (7-18); CARBON DIOXIDE 38.1 mmol/L (21-32); CHLORIDE 98 mmol/L (98-107); COR CA(FOR HYPOALB) 10.5 mg/dL (8.5-10.1); COR NA(FOR HYPERGLY) 140 mmol/L (136-145); CREATININE 1.09 mg/dL (0.55-1.02); SODIUM 138 mmol/L (136-145); TOTAL PROTEIN 5.8 g/dL (6.4-8.2); eGFR BLACK RACES > 60 (>60); eGFR NON BLACK RACES 51 (>60)
[2016-12-22 02:15] LABS: EOSINOPHILS % (AUTO) 1.2 % (0.9-2.9); HEMATOCRIT 27.4 % (36.0-47.0); HEMOGLOBIN 9.3 g/dL (12.0-16.0); LYMPHOCYTES % (AUTO) 91.8 % (21.0-51.0); MEAN CORPUSCULAR HEMOGLOBIN 32.7 pg (27.0-34.0); MEAN CORPUSCULAR HGB CONC 33.9 g/dL (33.0-35.0); MEAN CORPUSCULAR VOLUME 96.7 fL (80.0-100.0); MEAN PLATELET VOLUME 8.6 fL (7.4-11.0); MONOCYTES % (AUTO) 1.9 % (0.0-13.0); NEUTROPHILS # (AUTO) 0.1 x10^3/uL (2.2-4.8); NEUTROPHILS % (AUTO) 5.1 % (42.0-75.0); RED BLOOD COUNT 2.83 X10^6/uL (3.5-5.4); RED CELL DISTRIBUTION WIDTH 18.2 % (11.6-16.5)
[2016-12-22 02:22] LABS: WHITE BLOOD COUNT 1.1 X10^3/uL (3.6-10.0)
[2016-12-22 02:23] LABS: PLATELET COUNT 9 X10^3/uL (150.0-450.0)
[2016-12-22 02:24] LABS: ANISOCYTOSIS 1+; PLATELET MORPHOLOGY COMMENT ABNORMAL (NORMAL)
[2016-12-22] MEDS ORDERED: XYLOCAINE VISCOUS MT PRN (04:34)
--- NOTE | 2016-12-22 04:40 | RAD ---
AP Chest Indication: pain Comparison: 08/18/2016 Findings: The trachea is midline heart size is enlarged. There are chronic interstitial lung changes similar t o prior examination. No dense airspace consolidation is identified. There is a small right-sided pl eural effusion which is slightly more conspicuous than on prior examination. No pneumothorax. Previ ous right shoulder replacement is noted with elevation of the right humeral head. Impression: Stable cardiomegaly with moderate coarsening of the interstitium consistent with chronic interstitial lung changes with a mildly increased size right pleural effusion. Reported By:
[2016-12-22] MEDS: NS 1000 ML 1,000 ML IV SCH ×2 (05:27→17:57)
[2016-12-22] MEDS ORDERED: DIFLUCAN 200 MG IV PREMIX* 200 MG/100 ML BAG IV ONE (05:29)
[2016-12-22] MEDS: DIFLUCAN 100 MG IV (MIX by PHARMACY)* 100 MG/50 ML BAG IV SCH ×2 (05:36→11:52)
[2016-12-22 06:20] LABS: BASOPHILS % (AUTO) 0 % (0.2-1.0); EOSINOPHILS % (AUTO) 1.2 % (0.9-2.9); HEMATOCRIT 28.3 % (36.0-47.0); HEMOGLOBIN 9.5 g/dL (12.0-16.0); LYMPHOCYTES % (AUTO) 95.1 % (21.0-51.0); MEAN CORPUSCULAR HEMOGLOBIN 32.8 pg (27.0-34.0); MEAN CORPUSCULAR HGB CONC 33.4 g/dL (33.0-35.0); MEAN CORPUSCULAR VOLUME 98.2 fL (80.0-100.0); MEAN PLATELET VOLUME 9.2 fL (7.4-11.0); MONOCYTES # (AUTO) 0 x10^3/uL (0.3-0.8); MONOCYTES % (AUTO) 1.7 % (0.0-13.0); NEUTROPHILS # (AUTO) 0 x10^3/uL (2.2-4.8); RED BLOOD COUNT 2.88 X10^6/uL (3.5-5.4); RED CELL DISTRIBUTION WIDTH 18.4 % (11.6-16.5)
[2016-12-22 06:35] LABS: PLATELET COUNT 8 X10^3/uL (150.0-450.0); WHITE BLOOD COUNT 1.1 X10^3/uL (3.6-10.0)
[2016-12-22 06:36] LABS: PLATELET MORPHOLOGY COMMENT NORMAL (NORMAL)
[2016-12-22 06:49] VITALS: BMI 26.4
[2016-12-22] MEDS ORDERED: [UNRECOGNIZED DRUG - OTHER] PO SCH (09:00)
[2016-12-22] MEDS ORDERED: PATIENT'S HOME MEDICATION (Folic Acid [Folic Acid] 1 TAB) PO SCH (09:00)
[2016-12-22] MEDS ORDERED: CALCIUM CARBONATE SIMETHICONE PO SCH (09:00)
[2016-12-22] MEDS ORDERED: FLUCONAZOLE 200 MG PO SCH (09:00)
[2016-12-22] MEDS ORDERED: CHOLECALCIFEROL PO SCH (09:00)
[2016-12-22] MEDS ORDERED: XYLOCAINE VISCOUS ONE (09:15)
[2016-12-22] MEDS: NYSTATIN SUSP PO SCH ×3 (10:00→20:59)
[2016-12-22] MEDS: HumuLIN R SC SCH ×4 (11:44→21:39)
[2016-12-22] MEDS: ELDERTONIC + WINE PO SCH (11:53)
[2016-12-22] MEDS: FOLIC ACID TAB 1 MG PO SCH (11:53)
[2016-12-22] MEDS: GLUCOTROL PO SCH (11:53)
[2016-12-22] MEDS: LANOXIN PO SCH (11:53)
[2016-12-22] MEDS: PLAVIX PO SCH (11:54)
[2016-12-22] MEDS: VITAMIN D3 PO SCH (11:55)
[2016-12-22] MEDS: MORPHINE SULFATE INJ 2 MG INJ IVP PRN ×3 (12:13→23:00)
[2016-12-22] MEDS: MYLICON TAB 80 MG CHEW PO SCH ×2 (13:11→20:31)
[2016-12-22] MEDS ORDERED: TYLENOL 325 MG TAB PO PRN (13:46)
[2016-12-22] MEDS ORDERED: BENADRYL INJ 50 MG VIAL IVP PRN (13:46)
[2016-12-22] MEDS ORDERED: NS 500 ML IV 500 ML IV ONE (13:46)
[2016-12-22] MEDS: ALBUMIN HUMAN 25%- 100ML 100 ML IV SCH (16:02)
[2016-12-22] MEDS: MAGIC MOUTHWASH MT SCH ×3 (16:02→21:39)
[2016-12-22] MEDS: TUMS PO SCH ×2 (16:03→21:01)
[2016-12-22] MEDS ORDERED: LASIX IVP ONE (16:55)
[2016-12-22 20:49] LABS: BILIRUBIN,URINE NEGATIVE (NEGATIVE); BLOOD/HEMOGLOBIN,URINE 1+ (NEGATIVE); GLUCOSE, URINE 2+ (NEGATIVE); KETONES,URINE NEGATIVE (NEGATIVE); LEUKOCYTE ESTERASE ,URINE NEGATIVE (NEGATIVE); NITRITES,URINE NEGATIVE (NEGATIVE); PROTEIN,URINE 2+ (NEGATIVE); UROBILINOGEN,URINE NORMAL (NORMAL)
[2016-12-22 20:53] LABS: APPEARANCE,URINE CLEAR (CLEAR); COLOR,URINE YELLOW (YELLOW); RBC,URINE 0-2 /HPF (NEGATIVE)
[2016-12-22 20:54] LABS: BACTERIA,URINE TRACE /HPF (NEGATIVE); SQUAMOUS EPITHELIAL CELL,UR RARE /HPF (NEGATIVE)
[2016-12-22] MEDS: COLACE CAP 100 MG PO SCH (20:59)
[2016-12-22] MEDS ORDERED: ASPIRIN 81 MG CHEWTAB PO SCH (21:00)
[2016-12-22] MEDS: NEUPOGEN SC SCH (21:02)
[2016-12-23] MEDS: MORPHINE SULFATE INJ 2 MG INJ IVP PRN ×4 (05:16→20:44)
[2016-12-23] MEDS: NS 1000 ML 1,000 ML IV SCH ×2 (06:21→20:09)
[2016-12-23] MEDS: HumuLIN R SC SCH ×4 (06:22→20:45)
[2016-12-23] MEDS: TUMS PO SCH ×3 (06:22→21:10)
[2016-12-23 06:59] LABS: ALANINE AMINOTRANSFERASE 15 Units/L (12-78); ALBUMIN 2.7 g/dL (3.4-5.0); ALKALINE PHOSPHATASE 56 Units/L (46-116); ASPARTATE AMINO TRANSFERASE 28 Units/L (15-37); BLOOD UREA NITROGEN 18 mg/dL (7-18); CARBON DIOXIDE 30.7 mmol/L (21-32); CHLORIDE 99 mmol/L (98-107); COR NA(FOR HYPERGLY) 144 mmol/L (136-145); CREATININE 1.04 mg/dL (0.55-1.02); SODIUM 142 mmol/L (136-145); TOTAL PROTEIN 6.2 g/dL (6.4-8.2); eGFR BLACK RACES > 60 (>60); eGFR NON BLACK RACES 53 (>60)
[2016-12-23 07:53] LABS: BASOPHILS % (AUTO) 0 % (0.2-1.0); EOSINOPHILS % (AUTO) 2.6 % (0.9-2.9); HEMOGLOBIN 7.7 g/dL (12.0-16.0); LYMPHOCYTES # (AUTO) 0.5 X10^3/uL (1.3-2.9); LYMPHOCYTES % (AUTO) 89.6 % (21.0-51.0); MEAN CORPUSCULAR HEMOGLOBIN 32.7 pg (27.0-34.0); MEAN CORPUSCULAR HGB CONC 33.3 g/dL (33.0-35.0); MEAN PLATELET VOLUME 7.7 fL (7.4-11.0); MONOCYTES # (AUTO) 0 x10^3/uL (0.3-0.8); MONOCYTES % (AUTO) 3.4 % (0.0-13.0); NEUTROPHILS # (AUTO) 0 x10^3/uL (2.2-4.8); NEUTROPHILS % (AUTO) 4.4 % (42.0-75.0); PLATELET COUNT 77 X10^3/uL (150.0-450.0); RED BLOOD COUNT 2.35 X10^6/uL (3.5-5.4)
[2016-12-23 07:59] LABS: WHITE BLOOD COUNT 0.6 X10^3/uL (3.6-10.0)
[2016-12-23] MEDS ORDERED: PHARMACY CONSULT - DOSE _____ XX SCH ×2 (08:00→11:00)
[2016-12-23 08:13] LABS: ANISOCYTOSIS SLIGHT; HYPOCHROMASIA SLIGHT; PLATELET MORPHOLOGY COMMENT NORMAL (NORMAL)
[2016-12-23] MEDS: DIFLUCAN 200 MG IV PREMIX* 200 MG/100 ML BAG IV SCH (08:25)
[2016-12-23] MEDS: ALBUMIN HUMAN 25%- 100ML 100 ML IV SCH (08:26)
[2016-12-23] MEDS: NYSTATIN SUSP PO SCH ×4 (09:51→21:09)
[2016-12-23] MEDS: FOLIC ACID TAB 1 MG PO SCH (09:52)
[2016-12-23] MEDS: GLUCOTROL PO SCH (09:52)
[2016-12-23] MEDS: MAGIC MOUTHWASH MT SCH ×4 (09:52→21:11)
[2016-12-23] MEDS: ELDERTONIC + WINE PO SCH (09:52)
[2016-12-23] MEDS: MYLICON TAB 80 MG CHEW PO SCH ×3 (09:52→18:10)
[2016-12-23] MEDS: LANOXIN PO SCH (09:52)
[2016-12-23] MEDS: VITAMIN D3 PO SCH (09:53)
[2016-12-23] MEDS: PLAVIX PO SCH (09:53)
[2016-12-23] MEDS: LEVAQUIN PREMIX IV 500 MG 500 MG/100 ML BAG IV SCH (10:25)
[2016-12-23] MEDS: NEUPOGEN SC SCH (10:29)
[2016-12-23] MEDS ORDERED: BUTT CREAM (COMPOUND) ONE (10:43)
[2016-12-23] MEDS ORDERED: BUTT CREAM (COMPOUND) TOP PRN (11:00)
[2016-12-23] MEDS ORDERED: PHARMACY CONSULT - TPN XX SCH (11:00)
[2016-12-23] MEDS: CARAFATE SUSP 1 GM/10 ML PO SCH ×4 (11:39→21:10)
--- NOTE | 2016-12-23 12:00 | DR.H&P ---
H&P - History & Physical for Day of: H&P Date: 12/22/16 - Chief Complaint Chief Complaint: mouth pain - Allergies Allergies/Adverse Reactions: Allergies Allergy/AdvReac Type Severity Reaction Status Date / Time Penicillins Allergy Verified 12/21/16 23:56 - History of Present Illness History of Present Illness: is a 86 year old patient of ours who presented to the emergency room from the intermediate with reports of pain to the mouth. Patient noted with sores in mouth which have been being treated with magic mouth wash at the intermediate. Patients son reports she has been unable to eat or drink due to pain. On arrival to the emergency room, vital signs were 98.6, 74, 20, 100% RA, 176/73. Labs and chest xray were obtained on arrival to the emergency room. Abnormal lab values include the following: WBC 1.1, 1.1, RBC 2.83, 2.88, Hgb 9.3, 9.5, Hct 27.4, 28.3, RDW 18.2, 18.4, Plt Count 9, 8, Carbon Dioxide 38.1, BUN 20, Creatinine 1.09, GFR non 51, Glucose 180, Corrected Calcium 10.5, Total Bilirubin 1.60, CRP 130.50, Total Protein 5.8 , Albumin 2.1, A/G Ratio 0.6. Urinalysis: Protein 2+, Glucose 2+, Occult Blood 1 +, RBC 0-2, Bacteria Trace. Chest X-Ray: Stable cardiomegaly with moderate coarsening of the intrastitium consistent with chronic interstitial lung changes with a mildly increased size right pleural effusion. On examination, lungs were noted with wheezing throughout. Abdomen is soft, round, and non- tender with normal bowel sounds in all quadrants. Patient noted with 2+ pitting edema to right hand and 3+ pitting edema to left leg. Patient admitted for further treatment and evaluation of stomatitis, leuopenia, and thrombocytopenia. Patient placed on supplemental oxygen at 2L/min via nasal cannula. Patient started on multiple medications for oral sores as well as IV pain control. We plan to follow up with am labs and continue to monitor patient. - Past Medical History Past Medical History: CHF, CVA, Diabetes, Hypertension Additional Medical History: Vision deficit with corrective lenses, Frequent UTI' s, Back pain - Past Surgical History Surgical History: Ortho Surgery - Family History Family Medical History: Diabetes Mellitus, PR, Hypertension - Social History Does patient currently use any type of tobacco product: No Have you used tobacco products in the last 12 months: No Type of Tobacco Use: None Alcohol Use: None Drug Use: None - Medications Home Medications: Fluconazole [Diflucan tab 200 mg] 200 mg PO DAILY 12/22/16 [History Confirmed ] Glipizide 5 mg PO DAILY 12/22/16 [History Confirmed 12/22/16] Nystatin Susp [NYSTATIN ORAL SUSP *] 10 ml PO QID 12/22/16 [History Confirmed ] Potassium Chloride [K-Dur Tab 20 Meq] 20 meq PO DAILY 12/22/16 [History Confirmed 12/22/16] Hamilton Tonic 30 ml [Eldertonic + Wine] 30 ml PO DAILY 12/22/16 [History Confirmed 12/22/16] - Review of Systems Constitutional: Weakness Eyes: No Symptoms Reported ENT: Mouth Pain (lesions in mouth and throat ), Throat Pain Respiratory: Cough, Shortness of Breath, Wheezing Cardiovascular: Edema. denies: Chest Pain Gastrointestinal: No Symptoms Reported. denies: Nausea, Vomiting, Abdominal Pain Genitourinary: No Symptoms Reported Musculoskeletal: No Symptoms Reported Skin: Bruising. denies: Ecchymosis Neurological: Weakness - Physical Exam Vital Signs: Temperature 98.4 F Pulse Rate [Right Brachial] 68 Pulse Rate 74 Respiratory Rate 18 Blood Pressure [Right Calf] 120/62 Blood Pressure [Left Calf] 161/57 Blood Pressure [Left Arm] 159/67 Blood Pressure [Right Arm] 132/54 Blood Pressure [Right Radial 124/65 Artery] Blood Pressure 176/73 O2 Sat by Pulse Oximetry 100 Oriented: Normal Eyes: Normal Ear: Normal Nose: Normal Throat: Other (lesions in mouth and throat ) Respiratory: Wheezes Throughout Cardiovascular: Tachycardia, Bradycardia, Edema. negative: Murmur : Normal. negative: Dysuria, Hematuria, Bleeding Auscultation: Bowel Sounds: Normal Palpation: Normal Tenderness: Normal Skin: Bruising. 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
--- NOTE | 2016-12-23 13:10 | CT ---
Examination: CT of the head. Clinical history: Altered mental status. Technique: Multiple axial images were obtained from the skull base to the vertex. Dose reduction tech niques including automated exposure control (AEC) and adjustment of mA and kV were utilized. Comparison: 12/14/2015. Findings: Nonspecific periventricular white matter changes are noted, likely due to small vessel ischemic disea se. There is no intra-, or extra-axial hemorrhage, acute infarct or mass lesion noted. There is prominence of the CSF spaces consistent with age related cerebral atrophy. The ventricles ar e symmetric about the midline, with no midline shift or mass effect noted. The posterior fossa, brain stem and orbital regions are within normal limits. Atherosclerotic calcifi cations are seen associated with the internal carotid arteries bilaterally and the vertebral arteries bilaterally. There is patchy opacification of the mastoid air cells seen bilaterally, which could be due to acute or chronic mastoiditis. No additional bony or soft tissue abnormality is noted. Impression: 1. No acute infarct or hemorrhage. 2. Age-related cerebral atrophy. 3. Nonspecific periventricular white matter changes are noted, likely due to small vessel ischemic di sease. 4. There is patchy opacification of the mastoid air cells seen bilaterally, which could be due to acu te or chronic mastoiditis. Reported By:
[2016-12-23] MEDS: FORTAZ or TAZICEF INJ 1 GM in NS 50 ML IV 50 ML IV SCH ×2 (14:16→21:10)
[2016-12-23] MEDS: CLINIMIX 4.25 %/10 % 1,000 ML with MVI INJ (ADULT) 10 ML, TRACE ELEMENTS INJ 10 ML, DRU... IV SCH ×4 (15:51)
[2016-12-23] MEDS: COLACE CAP 100 MG PO SCH (21:11)
[2016-12-23] MEDS: LIPOSYN III 20% 100ML 100 ML IV SCH (21:38)
[2016-12-24] MEDS: MAGIC MOUTHWASH MT SCH ×5 (02:10→22:32)
[2016-12-24] MEDS: CLINIMIX 4.25 %/10 % 1,000 ML with MVI INJ (ADULT) 10 ML, TRACE ELEMENTS INJ 10 ML, DRU... IV SCH ×4 (02:10)
[2016-12-24] MEDS: VALIUM INJ IVP PRN (04:15)
[2016-12-24] MEDS: CARAFATE SUSP 1 GM/10 ML PO SCH ×6 (05:46→22:34)
[2016-12-24] MEDS: TUMS PO SCH ×3 (05:46→22:32)
[2016-12-24 05:55] LABS: ALANINE AMINOTRANSFERASE 49 Units/L (12-78); ALBUMIN 2.6 g/dL (3.4-5.0); ALKALINE PHOSPHATASE 50 Units/L (46-116); ASPARTATE AMINO TRANSFERASE 173 Units/L (15-37); BLOOD UREA NITROGEN 25 mg/dL (7-18); CARBON DIOXIDE 37.1 mmol/L (21-32); CHLORIDE 101 mmol/L (98-107); COR CA(FOR HYPOALB) 10.1 mg/dL (8.5-10.1); COR NA(FOR HYPERGLY) 144 mmol/L (136-145); CREATININE 1.07 mg/dL (0.55-1.02); SODIUM 141 mmol/L (136-145); TOTAL PROTEIN 5.5 g/dL (6.4-8.2); eGFR BLACK RACES > 60 (>60); eGFR NON BLACK RACES 52 (>60)
[2016-12-24] MEDS: HumuLIN R SC SCH ×4 (06:19→22:31)
[2016-12-24] MEDS: FORTAZ or TAZICEF INJ 1 GM in NS 50 ML IV 50 ML IV SCH ×4 (06:19→22:30)
[2016-12-24 08:09] LABS: BASOPHILS % (AUTO) 0 % (0.2-1.0); EOSINOPHILS % (AUTO) 2.8 % (0.9-2.9); HEMATOCRIT 25.4 % (36.0-47.0); HEMOGLOBIN 8.4 g/dL (12.0-16.0); LYMPHOCYTES # (AUTO) 0.9 X10^3/uL (1.3-2.9); LYMPHOCYTES % (AUTO) 92.3 % (21.0-51.0); MEAN CORPUSCULAR HEMOGLOBIN 32.4 pg (27.0-34.0); MEAN CORPUSCULAR HGB CONC 33.2 g/dL (33.0-35.0); MEAN CORPUSCULAR VOLUME 97.6 fL (80.0-100.0); MEAN PLATELET VOLUME 8.4 fL (7.4-11.0); MONOCYTES # (AUTO) 0 x10^3/uL (0.3-0.8); MONOCYTES % (AUTO) 2.2 % (0.0-13.0); NEUTROPHILS # (AUTO) 0 x10^3/uL (2.2-4.8); NEUTROPHILS % (AUTO) 2.7 % (42.0-75.0); RED CELL DISTRIBUTION WIDTH 17.7 % (11.6-16.5)
[2016-12-24 09:11] LABS: PLATELET COUNT 20 X10^3/uL (150.0-450.0)
[2016-12-24 09:12] LABS: PLATELET MORPHOLOGY COMMENT NORMAL (NORMAL)
[2016-12-24 09:13] LABS: HYPOCHROMASIA N; MICROCYTOSIS N
[2016-12-24] MEDS: DIFLUCAN 200 MG IV PREMIX* 200 MG/100 ML BAG IV SCH (09:24)
[2016-12-24] MEDS: LEVAQUIN PREMIX IV 500 MG 500 MG/100 ML BAG IV SCH (09:25)
[2016-12-24] MEDS: ALBUMIN HUMAN 25%- 100ML 100 ML IV SCH (09:25)
[2016-12-24] MEDS: NEUPOGEN SC SCH (09:42)
[2016-12-24] MEDS: ELDERTONIC + WINE PO SCH (09:59)
[2016-12-24] MEDS: NYSTATIN SUSP PO SCH ×5 (09:59→22:32)
[2016-12-24] MEDS: GLUCOTROL PO SCH (09:59)
[2016-12-24] MEDS: FOLIC ACID TAB 1 MG PO SCH (09:59)
[2016-12-24] MEDS: LANOXIN PO SCH (10:00)
[2016-12-24] MEDS: MYLICON TAB 80 MG CHEW PO SCH ×3 (10:00→19:16)
[2016-12-24] MEDS: VITAMIN D3 PO SCH (10:01)
[2016-12-24] MEDS ORDERED: DUONEB 0.5 MG/3 MG ONE (11:40)
[2016-12-24] MEDS: DUONEB 0.5 MG/3 MG NEB SCH ×3 (11:48→16:18)
[2016-12-24] MEDS ORDERED: SALINE 3% 15 ML NEB TX ONE (11:59)
[2016-12-24] MEDS ORDERED: SALINE 3% 15 ML NEB TX NEB ONE (12:00)
[2016-12-24] MEDS: MORPHINE SULFATE INJ 2 MG INJ IVP PRN ×3 (12:29→22:34)
--- NOTE | 2016-12-24 19:14 | DR.UPDATE ---
H&P Update History and Physical Update: History and Physical reviewed and patient examined. Changes noted: NO Yes with the following:agree with H&P of Dr Gomez. Will perform femoral central line if unable to obtain iv access with ultrasound. Procedures (ALL) - Central Line Placement PCM.CLCO: written consent Time out performed: Yes Patient placed pm monitor/pulse ox: Yes MD prep: mask, gown, gloves, other Centrial line prep: chlorhexidine scrub Local anesthsia used: lidocane 1% Ultrasound used for placement: Yes Central line lumen ininserted: triple Post procedure: good blood return, all ports aspirated, flushed,capped, sterile dressing applied Post procedure xray: tip oc catheter in good position Patient tolerated procedure: Yes Complications: none (peripheral attempt x2 prior to right femoral TLC)
[2016-12-24] MEDS: NS 1000 ML 1,000 ML IV SCH (22:33)
[2016-12-24] MEDS: LIPOSYN III 20% 100ML 100 ML IV SCH (22:33)
[2016-12-24] MEDS: COLACE CAP 100 MG PO SCH (22:33)
[2016-12-25] MEDS: VALIUM INJ IVP PRN ×2 (00:30→21:51)
[2016-12-25] MEDS: DUONEB 0.5 MG/3 MG NEB SCH ×5 (01:06→20:59)
[2016-12-25] MEDS: CARAFATE SUSP 1 GM/10 ML PO SCH ×4 (06:00→20:50)
[2016-12-25] MEDS: TUMS PO SCH ×3 (06:00→21:05)
[2016-12-25] MEDS: FORTAZ or TAZICEF INJ 1 GM in NS 50 ML IV 50 ML IV SCH ×3 (06:05→21:03)
--- NOTE | 2016-12-25 06:10 | RAD ---
HISTORY: Shortness of breath Study: Chest AP portable Comparison: 12/22/2016 Findings: The heart remains enlarged. The aorta is calcified. The linda are normal. No definite congestive heart failure is noted. Mild chronic interstitial lung changes are present. No acute alveolar infiltrates are identified. Bilateral small pleural effusions are likely present. IMPRESSION: Cardiomegaly without congestive heart failure Diffuse interstitial lung changes likely chronic Suspect bilateral small pleural effusions Reported By:
[2016-12-25] MEDS: CLINIMIX 4.25 %/10 % 1,000 ML with MVI INJ (ADULT) 10 ML, TRACE ELEMENTS INJ 10 ML, DRU... IV SCH ×8 (06:14→16:28)
[2016-12-25] MEDS: HumuLIN R SC SCH ×4 (06:17→20:53)
[2016-12-25 06:35] LABS: BASOPHILS % (AUTO) 0 % (0.2-1.0); EOSINOPHILS % (AUTO) 2.3 % (0.9-2.9); HEMATOCRIT 21.5 % (36.0-47.0); HEMOGLOBIN 7.3 g/dL (12.0-16.0); LYMPHOCYTES # (AUTO) 0.3 X10^3/uL (1.3-2.9); LYMPHOCYTES % (AUTO) 88.4 % (21.0-51.0); MEAN CORPUSCULAR HEMOGLOBIN 33.3 pg (27.0-34.0); MEAN CORPUSCULAR HGB CONC 34.1 g/dL (33.0-35.0); MEAN CORPUSCULAR VOLUME 97.5 fL (80.0-100.0); MONOCYTES # (AUTO) 0 x10^3/uL (0.3-0.8); MONOCYTES % (AUTO) 4.4 % (0.0-13.0); NEUTROPHILS # (AUTO) 0 x10^3/uL (2.2-4.8); NEUTROPHILS % (AUTO) 4.9 % (42.0-75.0); RED BLOOD COUNT 2.21 X10^6/uL (3.5-5.4); RED CELL DISTRIBUTION WIDTH 18.5 % (11.6-16.5)
[2016-12-25 06:44] LABS: WHITE BLOOD COUNT 0.3 X10^3/uL (3.6-10.0)
[2016-12-25 06:45] LABS: PLATELET COUNT 13 X10^3/uL (150.0-450.0)
[2016-12-25 06:49] LABS: ALANINE AMINOTRANSFERASE 110 Units/L (12-78); ALBUMIN 2.3 g/dL (3.4-5.0); ALKALINE PHOSPHATASE 45 Units/L (46-116); ASPARTATE AMINO TRANSFERASE 195 Units/L (15-37); BLOOD UREA NITROGEN 28 mg/dL (7-18); CALCIUM 9.1 mg/dL (8.5-10.1); CARBON DIOXIDE 37.6 mmol/L (21-32); CHLORIDE 101 mmol/L (98-107); COR CA(FOR HYPOALB) 10.5 mg/dL (8.5-10.1); COR NA(FOR HYPERGLY) 146 mmol/L (136-145); CREATININE 1.03 mg/dL (0.55-1.02); SODIUM 140 mmol/L (136-145); TOTAL PROTEIN 5.1 g/dL (6.4-8.2); eGFR BLACK RACES > 60 (>60); eGFR NON BLACK RACES 54 (>60)
[2016-12-25 07:40] LABS: HYPOCHROMASIA 1+; PLATELET MORPHOLOGY COMMENT NORMAL (NORMAL); SMUDGE CELLS rare
[2016-12-25 07:41] LABS: ANISOCYTOSIS 1+
[2016-12-25] MEDS: DIFLUCAN 200 MG IV PREMIX* 200 MG/100 ML BAG IV SCH (09:38)
[2016-12-25] MEDS: ALBUMIN HUMAN 25%- 100ML 100 ML IV SCH (09:38)
[2016-12-25] MEDS: LEVAQUIN PREMIX IV 500 MG 500 MG/100 ML BAG IV SCH (09:38)
[2016-12-25] MEDS: MORPHINE SULFATE INJ 2 MG INJ IVP PRN ×3 (09:39→20:52)
[2016-12-25] MEDS: NYSTATIN SUSP PO SCH ×4 (09:39→21:05)
[2016-12-25] MEDS ORDERED: LORTAB ELIX 7.5/325 MG (15 ML) PO PRN (10:03)
[2016-12-25] MEDS: ELDERTONIC + WINE PO SCH (10:23)
[2016-12-25] MEDS: FOLIC ACID TAB 1 MG PO SCH (10:23)
[2016-12-25] MEDS: GLUCOTROL PO SCH (10:24)
[2016-12-25] MEDS: VITAMIN D3 PO SCH (10:24)
[2016-12-25] MEDS: MAGIC MOUTHWASH MT SCH ×4 (10:25→21:03)
[2016-12-25] MEDS: LANOXIN PO SCH (10:25)
[2016-12-25] MEDS: MYLICON TAB 80 MG CHEW PO SCH ×3 (10:26→18:07)
[2016-12-25] MEDS: NEUPOGEN SC SCH (10:26)
--- NOTE | 2016-12-25 11:11 | PCM.PROG ---
Progress Note - Progress Note for Day of Date: 12/22/16 - Subjective Subjective: WAS ADMITTED FOR GINGIVITIS, LEUKOPENIA, AND THROMBOCYTOPENIA. TODAY, SHE IS LYING IN BED WITH EYES CLOSED ON MORNING ROUNDS. SHE AWAKENS AND RESPONDS VERBALLY TO STIMULI. SHE IS NOTED WITH COMPALAINTS OF PAIN TO MOUTH AND THROAT AND WEAKNESS. PATIENT DOES APPEAR TO BE SOMEWHAT CONFUSED AND IS NOT COMPREHENDING OUR CONVERSATION. STAFF REPORTS THAT PATIENT HAS BEEN REFUSING TO EAT, DRINK, OR TAKE PO MEDICATIONS DUE TO PAIN IN MOUTH. ON EXAMINATION, MOUTH IS NOTED WITH NUMEROUS WHITE LESIONS TO GUMS AND THROAT. LUNG SOUNDS ARE NOTED WITH WHEEZING BILATERALLY TO AUSCULTATION. ABDOMEN IS ROUND, SOFT, AND NON-TENDER WITH NORMAL BOWEL SOUNDS IN ALL QUADRANTS. BILATERAL UPPER AND LOWER EXTREMITIES CONTINUE WITH 2+ PITTING EDEMA. HER SHE IS UTILIZING OXYGEN VIA NASAL CANNULA AT 2LPM AT THIS TIME. HER VITAL SIGNS THIS MORNING ARE 98.4-68-18-100%-159/67. ABNORMAL LAB VALUES THIS MORNING INCLUDE THE FOLLOWING: WBC 0.6, RBC 2.35, HGB 7.7, HCT 23, PLTS 77, CREATININE 1.04, GLUCOSE 200, TOTAL BILI 2.60, TOTAL PROTEIN 6.2, ALBUMIN 2.7. A DURHAM CATHETER WAS INSERTED LAST NIGHT DUE TO INCONTINENCE. PATIENT RECEIVED 2 SUPERPACKS OF PLATELETS YESTERDAY AND WAS GIVEN NEUOPGEN 480MG SC X 1 DOSE. STAFF REPORTED THAT PATIENT WAS HAVING DIARRHEA YESTERDAY. A STOOL SAMPLE WAS COLLECTED AND SENT TO LAB. THROAT CULTURE WAS ALSO COLLECTED AND SENT TO LAB. RESULTS ARE PENDING. A PERIPHERAL SMEAR IS PENDING. TODAY, WE WILL START FORTAZ AND LEVAQUIN IV, PHARMACY TO ADJUST DOSE. WE WILL ALSO START PATIENT OF TPN AND ALBUMIN, CARAFATE SOLUTION TO MOUTH, NEUPOGEN 480MG SC [place], AND OBTAIN A BRAIN CT. OTHERWISE, WE PLAN TO FOLLOW UP WITH AM LABS AND CONTINUE TO MONITOR PATIENT. - Past Medical Family Social History Past Med/Fam/Surg Hx: No changes since H&P Allergies: Allergies Penicillins Allergy (Verified 12/21/16 23:56) - Review of Systems ROS: No change since H&P - Vital Signs and I&O's Vital Signs: Temperature 98 F Pulse Rate [Right Brachial] 84 Pulse Rate 62 Respiratory Rate 14 Blood Pressure [Right Calf] 120/62 Blood Pressure [Left Calf] 161/57 Blood Pressure [Left Arm] 167/72 Blood Pressure [Right Arm] 132/54 Blood Pressure [Right Radial 124/65 Artery] Blood Pressure 176/73 O2 Sat by Pulse Oximetry 100 Intake and Output: Intake & Output 12/22/16 12/23/16 12/24/16 12/25/16 11:59 11:59 11:59 11:59 Intake Total 2140 2210 2286 Output Total 700 615 900 Balance 1440 1595 1386 - Physical Exam Oriented: Person Eyes: Normal Ear: Normal Nose: Normal Throat: Other (lesions in mouth and throat ) Respiratory: Wheezes Cardiovascular: Normal, Edema. negative: Murmur : Normal. negative: Dysuria, Hematuria, Bleeding Auscultation: Bowel Sounds: Normal Palpation: Normal Tenderness: Normal Skin: Bruising. negative: Ecchymosis Musculoskeletal: Normal Psychiatric: Normal Mood Description: Calm Affect: Normal Speech Pattern: Clear, Appropriate - Laboratory and Diagnostics Result Diagrams: 12/25/16 06:25 12/25/16 06:25 Labs: 12/22/16 16:00 Throat Throat Culture - Final Klebsiella Pneumoniae Laboratory WBC 0.3 X10^3/uL (3.6-10.0) L* 12/25/16 06:25 RBC 2.21 X10^6/uL (3.5-5.4) L 12/25/16 06:25 Hgb 7.3 g/dL (12.0-16.0) L 12/25/16 06:25 Hct 21.5 % (36.0-47.0) L 12/25/16 06:25 MCV 97.5 fL (80.0-100.0) 12/25/16 06:25 MCH 33.3 pg (27.0-34.0) 12/25/16 06:25 MCHC 34.1 g/dL (33.0-35.0) 12/25/16 06:25 RDW 18.5 % (11.6-16.5) H 12/25/16 06:25 Plt Count 13 X10^3/uL (150.0-450.0) L* 12/25/16 06:25 Plt Count Comment Decreased (ADEQUATE) A 12/25/16 06:25 MPV 8.0 fL (7.4-11.0) 12/25/16 06:25 Neut % 4.9 % (42.0-75.0) L 12/25/16 06:25 Lymph % 88.4 % (21.0-51.0) H 12/25/16 06:25 Hunt % 4.4 % (0.0-13.0) 12/25/16 06:25 Eos % 2.3 % (0.9-2.9) 12/25/16 06:25 Baso % 0 % (0.2-1.0) L 12/25/16 06:25 Neut # 0 x10^3/uL (2.2-4.8) L 12/25/16 06:25 Lymph # 0.3 X10^3/uL (1.3-2.9) L 12/25/16 06:25 Hunt # 0 x10^3/uL (0.3-0.8) L 12/25/16 06:25 Eos # 0.0 x10^3/uL (0.0-0.2) 12/25/16 06:25 Baso # 0.0 X10^3/uL (0.0-0.1) 12/25/16 06:25 Absolute Nucleated RBC 1.1 /100WBC 12/25/16 06:25 Total Counted 25 12/25/16 06:25 Neutrophils % (Manual) 6 % (39-76) L 12/25/16 06:25 Lymphocytes % (Manual) 88 % (13-43) H 12/25/16 06:25 Monocytes % (Manual) 4 % (4-9) 12/25/16 06:25 Eosinophils % (Manual) 2 % (0-6) 12/25/16 06:25 Smudge Cells rare 12/25/16 06:25 Plt Clumps, EDTA Rare 12/24/16 07:55 Plt Morphology Comment Normal (NORMAL) 12/25/16 06:25 RBC Morphology Abnormal (NORMAL) A 12/25/16 06:25 Hypochromasia 1+ A 12/25/16 06:25 Anisocytosis 1+ A 12/25/16 06:25 Microcytosis N 12/24/16 07:55 Sodium 140 mmol/L (136-145) 12/25/16 06:25 Corrected Sodium 146 mmol/L (136-145) H 12/25/16 06:25 Potassium 3.0 mmol/L (3.5-5.1) L* 12/25/16 06:25 Chloride 101 mmol/L (98-107) 12/25/16 06:25 Carbon Dioxide 37.6 mmol/L (21-32) H 12/25/16 06:25 BUN 28 mg/dL (7-18) H 12/25/16 06:25 Creatinine 1.03 mg/dL (0.55-1.02) H 12/25/16 06:25 Est GFR (MDRD) Af Amer > 60 (>60) 12/25/16 06:25 Est GFR (MDRD) Non-Af 54 (>60) L 12/25/16 06:25 Glucose 349 mg/dL (65-99) H 12/25/16 06:25 POC Glucose (mg/dL) 360 mg/dL (65-99) H 12/25/16 06:10 Calcium 9.1 mg/dL (8.5-10.1) 12/25/16 06:25 Corrected Calcium 10.5 mg/dL (8.5-10.1) H 12/25/16 06:25 Total Bilirubin 4.20 mg/dL (0.2-1.0) H 12/25/16 06:25 AST 195 Units/L (15-37) H 12/25/16 06:25 ALT 110 Units/L (12-78) H 12/25/16 06:25 Alkaline Phosphatase 45 Units/L (46-116) L 12/25/16 06:25 C-Reactive Protein 130.50 mg/L (0-3.0) H 12/22/16 01:25 Total Protein 5.1 g/dL (6.4-8.2) L 12/25/16 06:25 Albumin 2.3 g/dL (3.4-5.0) L 12/25/16 06:25 Globulin 2.8 g/dL (2.5-4.5) 12/25/16 06:25 Albumin/Globulin Ratio 0.8 Ratio (1.1-2.1) L 12/25/16 06:25 Prealbumin 8.6 mg/dL (18-35.7) L 12/23/16 05:30 Specimen Type Catherized urine 12/22/16 20:19 Urine Color Yellow (YELLOW) 12/22/16 20:19 Urine Appearance Clear (CLEAR) 12/22/16 20:19 Urine pH 5.0 (5.0 - 8.0) 12/22/16 20:19 Ur Specific [place] 1.010 (1.000-1.030) 12/22/16 20:19 Urine Protein 2+ (NEGATIVE) 12/22/16 20:19 Urine Glucose (UA) 2+ (NEGATIVE) 12/22/16 20:19 Urine Ketones Negative (NEGATIVE) 12/22/16 20:19 Urine Occult Blood 1+ (NEGATIVE) 12/22/16 20:19 Urine Nitrite Negative (NEGATIVE) 12/22/16 20:19 Urine Bilirubin Negative (NEGATIVE) 12/22/16 20:19 Urine Urobilinogen Normal (NORMAL) 12/22/16 20:19 Ur Leukocyte Esterase Negative (NEGATIVE) 12/22/16 20:19 Urine RBC 0-2 /HPF (NEGATIVE) 12/22/16 20:19 Urine WBC None seen /HPF (NEGATIVE) 12/22/16 20:19 Ur Squamous Epith Cells Rare /HPF (NEGATIVE) 12/22/16 20:19 Urine Bacteria Trace /HPF (NEGATIVE) 12/22/16 20:19 Ur Culture Indicated? No/not indicated 12/22/16 20:19 Stl C. diff Tox B Gene Negative (NEGATIVE) 12/22/16 12:58 Stl C. diff [id number] Negative (NEGATIVE) 12/22/16 12:58 Digoxin 0.71 ng/mL (0.9-2) L 12/23/16 05:30 Blood Type A POSITIVE 12/22/16 15:35 Antibody Screen Negative 12/22/16 15:35 - Plan (1) leukopenia stomatitis Status: Acute Plan: fortaz iv, levaquin iv, carafate solution to mouth achs, viscous lidocaine , magic mouthwash, nystatin suspension, diflucan iv, continue to monitor (2) Leukopenia Status: Acute Qualifiers: Leukopenia type: lymphocytopenia Qualified Code(s): D72.810 - Lymphocytopenia Plan: neupogen 480mg sq daily, continue to monitor (3) Thrombocytopenia Status: Acute Plan: continue to monitor (4) Hypoalbuminemia due to protein-calorie malnutrition Status: Acute Plan: tpn, albumin daily, continue to monitor
--- NOTE | 2016-12-25 11:27 | PCM.PROG ---
Progress Note - Progress Note for Day of Date: 12/24/16 - Subjective Subjective: WAS ADMITTED FOR LEUKOPENIA STOMATITIS, LEUKOPENIA, AND THROMBOCYTOPENIA. TODAY, SHE IS LYING IN BED WITH EYES CLOSED ON MORNING ROUNDS. SHE AWAKENS AND RESPONDS VERBALLY TO STIMULI. SHE CONTINUES WITH COMPALAINTS OF PAIN TO MOUTH AND THROAT AND WEAKNESS. PATIENT IS MORE ALERT AND LUCID TODAY THAN SHE WAS YESTERDAY, ALTHOUGH STAFF REPORTS CONFUSION THROUGHOUT THE MORNING. STAFF REPORTS THAT PATIENT CONTINUES TO REFUSE TO EAT, DRINK, OR TAKE PO MEDICATIONS DUE TO PAIN IN MOUTH. MOUTH CONTINUES WITH NUMEROUS WHITE LESIONS. LUNGS CONTINUE WITH WHEEZING BILATERALLY TO AUSCULTATION. ABDOMEN IS ROUND, SOFT, AND NON-TENDER WITH NORMAL BOWEL SOUNDS IN ALL QUADRANTS. BILATERAL UPPER AND LOWER EXTREMITIES CONTINUE WITH 2+ PITTING EDEMA. HER SHE IS UTILIZING OXYGEN VIA NASAL CANNULA AT 2LPM AT THIS TIME. HER VITAL SIGNS THIS MORNING ARE 98.5-74-18-100%-176/71. ABNORMAL LAB VALUES THIS MORNING INCLUDE THE FOLLOWING: WBC 1.0 (THIS IS AN INCREASE FROM 0.6 YESTERDAY), RBC 2.60, HGB 8.4, HCT 25.4, PLTS 20, CARBON DIOXIDE 37.1, BUN 25, CREATININE 1.07, GLUCOSE 245, TOTAL BILI 3.40, AST 173, TOTAL PROTEIN 5.5, ALBUMIN 2.6. THROAT CULTURE REPORTED GROWTH OF KLEBSIELLA PNEUMONIAE. IT IS SENSITIVE TO THE FORTAZ AND LEVAQUIN THAT WE HAVE ALREADY STARTED HER ON. BRAIN CT FROM YESTERDAY REPORTED NO ACUTE INFARC OR HEMORRHAGE. 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 TODAY, WE WILL CONTINUE WITH CURRENT PLAN OF CARE. WE PLAN TO FOLLOW UP WITH AM LABS AND CHEST XRAY AND CONTINUE TO MONITOR PATIENT. - Past Medical Family Social History Past Med/Fam/Surg Hx: No changes since H&P Allergies: Allergies Penicillins Allergy (Verified 12/21/16 23:56) - Review of Systems ROS: No change since H&P - Vital Signs and I&O's Vital Signs: Temperature 98 F Pulse Rate [Right Brachial] 84 Pulse Rate 62 Respiratory Rate 14 Blood Pressure [Right Calf] 120/62 Blood Pressure [Left Calf] 161/57 Blood Pressure [Left Arm] 167/72 Blood Pressure [Right Arm] 132/54 Blood Pressure [Right Radial 124/65 Artery] Blood Pressure 176/73 O2 Sat by Pulse Oximetry 100 Intake and Output: Intake & Output 12/22/16 12/23/16 12/24/16 12/25/16 11:59 11:59 11:59 11:59 Intake Total 2140 2210 2286 Output Total 700 615 900 Balance 1440 1595 1386 - Physical Exam Oriented: Normal Eyes: Normal Ear: Normal Nose: Normal Throat: Other (lesions in mouth and throat ) Respiratory: Wheezes Cardiovascular: Normal, Edema. negative: Murmur : Normal. negative: Dysuria, Hematuria, Bleeding Auscultation: Bowel Sounds: Normal Palpation: Normal Tenderness: Normal Skin: Bruising. negative: Ecchymosis Musculoskeletal: Normal Psychiatric: Normal Mood Description: Calm Affect: Normal Speech Pattern: Clear, Appropriate - Laboratory and Diagnostics Result Diagrams: 12/25/16 06:25 12/25/16 06:25 Labs: 12/22/16 16:00 Throat Throat Culture - Final Klebsiella Pneumoniae Laboratory WBC 0.3 X10^3/uL (3.6-10.0) L* 12/25/16 06:25 RBC 2.21 X10^6/uL (3.5-5.4) L 12/25/16 06:25 Hgb 7.3 g/dL (12.0-16.0) L 12/25/16 06:25 Hct 21.5 % (36.0-47.0) L 12/25/16 06:25 MCV 97.5 fL (80.0-100.0) 12/25/16 06:25 MCH 33.3 pg (27.0-34.0) 12/25/16 06:25 MCHC 34.1 g/dL (33.0-35.0) 12/25/16 06:25 RDW 18.5 % (11.6-16.5) H 12/25/16 06:25 Plt Count 13 X10^3/uL (150.0-450.0) L* 12/25/16 06:25 Plt Count Comment Decreased (ADEQUATE) A 12/25/16 06:25 MPV 8.0 fL (7.4-11.0) 12/25/16 06:25 Neut % 4.9 % (42.0-75.0) L 12/25/16 06:25 Lymph % 88.4 % (21.0-51.0) H 12/25/16 06:25 [place] % 4.4 % (0.0-13.0) 12/25/16 06:25 Eos % 2.3 % (0.9-2.9) 12/25/16 06:25 Baso % 0 % (0.2-1.0) L 12/25/16 06:25 Neut # 0 x10^3/uL (2.2-4.8) L 12/25/16 06:25 Lymph # 0.3 X10^3/uL (1.3-2.9) L 12/25/16 06:25 [place] # 0 x10^3/uL (0.3-0.8) L 12/25/16 06:25 Eos # 0.0 x10^3/uL (0.0-0.2) 12/25/16 06:25 Baso # 0.0 X10^3/uL (0.0-0.1) 12/25/16 06:25 Absolute Nucleated RBC 1.1 /100WBC 12/25/16 06:25 Total Counted 25 12/25/16 06:25 Neutrophils % (Manual) 6 % (39-76) L 12/25/16 06:25 Lymphocytes % (Manual) 88 % (13-43) H 12/25/16 06:25 Monocytes % (Manual) 4 % (4-9) 12/25/16 06:25 Eosinophils % (Manual) 2 % (0-6) 12/25/16 06:25 Smudge Cells rare 12/25/16 06:25 Plt Clumps, EDTA Rare 12/24/16 07:55 Plt Morphology Comment Normal (NORMAL) 12/25/16 06:25 RBC Morphology Abnormal (NORMAL) A 12/25/16 06:25 Hypochromasia 1+ A 12/25/16 06:25 Anisocytosis 1+ A 12/25/16 06:25 Microcytosis N 12/24/16 07:55 Sodium 140 mmol/L (136-145) 12/25/16 06:25 Corrected Sodium 146 mmol/L (136-145) H 12/25/16 06:25 Potassium 3.0 mmol/L (3.5-5.1) L* 12/25/16 06:25 Chloride 101 mmol/L (98-107) 12/25/16 06:25 Carbon Dioxide 37.6 mmol/L (21-32) H 12/25/16 06:25 BUN 28 mg/dL (7-18) H 12/25/16 06:25 Creatinine 1.03 mg/dL (0.55-1.02) H 12/25/16 06:25 Est GFR (MDRD) Af Amer > 60 (>60) 12/25/16 06:25 Est GFR (MDRD) Non-Af 54 (>60) L 12/25/16 06:25 Glucose 349 mg/dL (65-99) H 12/25/16 06:25 POC Glucose (mg/dL) 360 mg/dL (65-99) H 12/25/16 06:10 Calcium 9.1 mg/dL (8.5-10.1) 12/25/16 06:25 Corrected Calcium 10.5 mg/dL (8.5-10.1) H 12/25/16 06:25 Total Bilirubin 4.20 mg/dL (0.2-1.0) H 12/25/16 06:25 AST 195 Units/L (15-37) H 12/25/16 06:25 ALT 110 Units/L (12-78) H 12/25/16 06:25 Alkaline Phosphatase 45 Units/L (46-116) L 12/25/16 06:25 C-Reactive Protein 130.50 mg/L (0-3.0) H 12/22/16 01:25 Total Protein 5.1 g/dL (6.4-8.2) L 12/25/16 06:25 Albumin 2.3 g/dL (3.4-5.0) L 12/25/16 06:25 Globulin 2.8 g/dL (2.5-4.5) 12/25/16 06:25 Albumin/Globulin Ratio 0.8 Ratio (1.1-2.1) L 12/25/16 06:25 Prealbumin 8.6 mg/dL (18-35.7) L 12/23/16 05:30 Specimen Type Catherized urine 12/22/16 20:19 Urine Color Yellow (YELLOW) 12/22/16 20:19 Urine Appearance Clear (CLEAR) 12/22/16 20:19 Urine pH 5.0 (5.0 - 8.0) 12/22/16 20:19 Ur Specific [place] 1.010 (1.000-1.030) 12/22/16 20:19 Urine Protein 2+ (NEGATIVE) 12/22/16 20:19 Urine Glucose (UA) 2+ (NEGATIVE) 12/22/16 20:19 Urine Ketones Negative (NEGATIVE) 12/22/16 20:19 Urine Occult Blood 1+ (NEGATIVE) 12/22/16 20:19 Urine Nitrite Negative (NEGATIVE) 12/22/16 20:19 Urine Bilirubin Negative (NEGATIVE) 12/22/16 20:19 Urine Urobilinogen Normal (NORMAL) 12/22/16 20:19 Ur Leukocyte Esterase Negative (NEGATIVE) 12/22/16 20:19 Urine RBC 0-2 /HPF (NEGATIVE) 12/22/16 20:19 Urine WBC None seen /HPF (NEGATIVE) 12/22/16 20:19 Ur Squamous Epith Cells Rare /HPF (NEGATIVE) 12/22/16 20:19 Urine Bacteria Trace /HPF (NEGATIVE) 12/22/16 20:19 Ur Culture Indicated? No/not indicated 12/22/16 20:19 Stl C. diff Tox B Gene Negative (NEGATIVE) 12/22/16 12:58 Stl C. diff [id number] Negative (NEGATIVE) 12/22/16 12:58 Digoxin 0.71 ng/mL (0.9-2) L 12/23/16 05:30 Blood Type A POSITIVE 12/22/16 15:35 Antibody Screen Negative 12/22/16 15:35 - Plan (1) leukopenia stomatitis Status: Acute Plan: fortaz iv, levaquin iv, carafate solution to mouth achs, viscous lidocaine , magic mouthwash, nystatin suspension, diflucan iv, continue to monitor (2) Leukopenia Status: Acute Qualifiers: Leukopenia type: lymphocytopenia Qualified Code(s): D72.810 - Lymphocytopenia Plan: neupogen 480mg sq daily, continue to monitor (3) Thrombocytopenia Status: Acute Plan: continue to monitor (4) Hypoalbuminemia due to protein-calorie malnutrition Status: Acute Plan: tpn, albumin daily, continue to monitor
[2016-12-25] MEDS ORDERED: K-RIDER 10 MEQ/NS 100 ML 10 MEQ/100 ML BAG IV PRN (11:57)
[2016-12-25] MEDS ORDERED: K-LYTE EFFERVESCENT PO PRN (11:57)
[2016-12-25] MEDS: NS 1000 ML 1,000 ML IV SCH ×2 (15:12→16:27)
[2016-12-25] MEDS: COLACE CAP 100 MG PO SCH (20:51)
[2016-12-25] MEDS: LIPOSYN III 20% 100ML 100 ML IV SCH (21:03)
[2016-12-26] MEDS: DUONEB 0.5 MG/3 MG NEB SCH ×2 (00:34→05:07)
[2016-12-26] MEDS: MORPHINE SULFATE INJ 2 MG INJ IVP PRN ×3 (01:22→11:33)
[2016-12-26] MEDS: NS 1000 ML 1,000 ML IV SCH (05:34)
[2016-12-26] MEDS: CLINIMIX 4.25 %/10 % 1,000 ML with MVI INJ (ADULT) 10 ML, TRACE ELEMENTS INJ 10 ML, DRU... IV SCH ×4 (05:35)
[2016-12-26] MEDS: FORTAZ or TAZICEF INJ 1 GM in NS 50 ML IV 50 ML IV SCH (05:35)
[2016-12-26] MEDS: HumuLIN R SC SCH ×2 (05:36→12:07)
[2016-12-26] MEDS: TUMS PO SCH (05:36)
[2016-12-26] MEDS: CARAFATE SUSP 1 GM/10 ML PO SCH ×2 (05:37→12:06)
[2016-12-26 05:46] VITALS: BP 91/59
[2016-12-26 06:25] LABS: ALANINE AMINOTRANSFERASE 90 Units/L (12-78); ALBUMIN 2.4 g/dL (3.4-5.0); ALKALINE PHOSPHATASE 44 Units/L (46-116); ASPARTATE AMINO TRANSFERASE 89 Units/L (15-37); BLOOD UREA NITROGEN 29 mg/dL (7-18); CALCIUM 9.1 mg/dL (8.5-10.1); CARBON DIOXIDE 38.6 mmol/L (21-32); CHLORIDE 102 mmol/L (98-107); COR CA(FOR HYPOALB) 10.4 mg/dL (8.5-10.1); COR NA(FOR HYPERGLY) 148 mmol/L (136-145); CREATININE 0.95 mg/dL (0.55-1.02); SODIUM 142 mmol/L (136-145); eGFR BLACK RACES > 60 (>60); eGFR NON BLACK RACES 59 (>60)
[2016-12-26] MEDS ORDERED: VALIUM INJ IM PRN (06:49)
[2016-12-26] MEDS: VALIUM INJ IVP PRN ×2 (06:51→11:35)
[2016-12-26 07:06] LABS: BASOPHILS % (AUTO) 0.2 % (0.2-1.0); EOSINOPHILS % (AUTO) 3.8 % (0.9-2.9); LYMPHOCYTES # (AUTO) 0.3 X10^3/uL (1.3-2.9); LYMPHOCYTES % (AUTO) 68.4 % (21.0-51.0); MEAN CORPUSCULAR HEMOGLOBIN 32.8 pg (27.0-34.0); MEAN CORPUSCULAR HGB CONC 33.3 g/dL (33.0-35.0); MEAN CORPUSCULAR VOLUME 98.7 fL (80.0-100.0); MEAN PLATELET VOLUME 10.4 fL (7.4-11.0); MONOCYTES # (AUTO) 0.1 x10^3/uL (0.3-0.8); MONOCYTES % (AUTO) 13.9 % (0.0-13.0); NEUTROPHILS # (AUTO) 0.1 x10^3/uL (2.2-4.8); NEUTROPHILS % (AUTO) 13.7 % (42.0-75.0); RED BLOOD COUNT 2.12 X10^6/uL (3.5-5.4); RED CELL DISTRIBUTION WIDTH 18.7 % (11.6-16.5)
[2016-12-26 07:07] LABS: WHITE BLOOD COUNT 0.5 X10^3/uL (3.6-10.0)
[2016-12-26 07:08] LABS: PLATELET COUNT 5 X10^3/uL (150.0-450.0)
[2016-12-26 07:27] LABS: ANISOCYTOSIS 1+; HYPOCHROMASIA 1+; MICROCYTOSIS SLIGHT; PLATELET MORPHOLOGY COMMENT NORMAL (NORMAL)
[2016-12-26] MEDS ORDERED: ROXANOL ORAL SOLN 20MG UDC PO PRN (10:53)
[2016-12-26] MEDS ORDERED: ISOPTO ATROPINE SL PRN (10:57)
[2016-12-26] MEDS: ALBUMIN HUMAN 25%- 100ML 100 ML IV SCH (12:03)
[2016-12-26] MEDS: DIFLUCAN 200 MG IV PREMIX* 200 MG/100 ML BAG IV SCH (12:05)
[2016-12-26] MEDS: ELDERTONIC + WINE PO SCH (12:06)
[2016-12-26] MEDS: VITAMIN D3 PO SCH (12:06)
[2016-12-26] MEDS: NYSTATIN SUSP PO SCH (12:07)
[2016-12-26] MEDS: LANOXIN PO SCH (12:08)
[2016-12-26] MEDS: MAGIC MOUTHWASH MT SCH (12:08)
[2016-12-26] MEDS: NEUPOGEN SC SCH (12:08)
[2016-12-26] MEDS: LEVAQUIN PREMIX IV 500 MG 500 MG/100 ML BAG IV SCH (12:08)
[2016-12-26] MEDS: MYLICON TAB 80 MG CHEW PO SCH (12:08)
[2016-12-26] MEDS: GLUCOTROL PO SCH (12:09)
[2016-12-26] MEDS: FOLIC ACID TAB 1 MG PO SCH (12:09)
--- NOTE | 2016-12-26 12:22 | PCM.PROG ---
Progress Note - Progress Note for Day of Date: 12/25/16 - Subjective Subjective: WAS ADMITTED FOR LEUKOPENIA STOMATITIS, LEUKOPENIA, AND THROMBOCYTOPENIA. TODAY, SHE IS LYING IN BED WITH EYES CLOSED ON MORNING ROUNDS. SHE AWAKENS AND RESPONDS VERBALLY TO STIMULI. SHE CONTINUES WITH COMPALAINTS OF PAIN TO MOUTH. STAFF REPORTS THAT PATIENT CONTINUES TO REFUSE TO EAT OR DRINK, HOWEVER, SHE DOES ALLOW STAFF TO COAT MOUTH WITH THE CARAFATE THAT WAS ORDERED. ON EXAMINATION, LUNGS CONTINUE WITH WHEEZING BILATERALLY TO AUSCULTATION. ABDOMEN IS ROUND, SOFT, AND NON-TENDER WITH NORMAL BOWEL SOUNDS IN ALL QUADRANTS. BILATERAL UPPER AND LOWER EXTREMITIES CONTINUE WITH 2+ PITTING EDEMA. HER SHE IS UTILIZING OXYGEN VIA NASAL CANNULA AT 2LPM AT THIS TIME. HER VITAL SIGNS THIS MORNING ARE 97.5-93-20-100%-141/63. ABNORMAL LAB VALUES THIS MORNING INCLUDE THE FOLLOWING: WBC 0.3 (THIS IS A DECREASE FROM 1.0 YESTERDAY), RBC 2.21, HGB 7.3, HCT 21.5, PLTS 13, POTASSIUM 3.0, CARBON DIOXIDE 37.6, BUN 28, CREATININE 1.03, GLUCOSE 349, TOTAL BILI 4.20, AST 195, ALT 110, ALK PHOS 45, TOTAL PROTEIN 5.1, ALBUMIN 2.3. WE OBTAINED A CHEST XRAY TODAY. 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 WE SPOKE WITH PATIENTS SON TODAY AND DISCUSSED WITH HIM THE PATIENTS CONDITION. PATIENTS SON VERBALIZES HIS WISHES TO KEEP HIS MOTHER COMFORTABLE POSSIBLE THROUGH THE END STAGES OF HER DISEASE PROCESS. HE DOES NOT WISH FOR PATIENT TO BE TURNED ON A SCHEDULED BASIS DUE TO PAIN AND AGITATION. HE WISHES TO CALL FAMILY IN TO SEE THE PATIENT AND PLAN TO DISCHARGE BACK TO [facility] TOMORROW ON PALLIATIVE CARE MEASURES. WE ARE IN AGREEMENT WITH PATIENTS WISHES. TODAY, WE WILL CONTINUE WITH CURRENT PLAN OF CARE. WE PLAN TO FOLLOW UP WITH AM LABS AND CHEST XRAY AND CONTINUE TO MONITOR PATIENT. - Past Medical Family Social History Past Med/Fam/Surg Hx: No changes since H&P Allergies: Allergies Penicillins Allergy (Verified 12/21/16 23:56) - Review of Systems ROS: No change since H&P - Vital Signs and I&O's Vital Signs: Temperature 97.6 F Pulse Rate [Right Brachial] 66 Pulse Rate 96 Respiratory Rate 14 Blood Pressure [Right Calf] 120/62 Blood Pressure [Left Calf] 91/59 Blood Pressure [Left Arm] 167/70 Blood Pressure [Right Arm] 132/54 Blood Pressure [Right Radial 124/65 Artery] Blood Pressure 176/73 O2 Sat by Pulse Oximetry 100 Intake and Output: Intake & Output 12/24/16 12/25/16 12/26/16 12/27/16 11:59 11:59 11:59 11:59 Intake Total 2210 2286 2528 Output Total 319 029 6209 Balance 1595 1386 1278 - Physical Exam Oriented: Normal Eyes: Normal Ear: Normal Nose: Normal Throat: Other (lesions in mouth and throat ) Respiratory: Wheezes Cardiovascular: Normal, Edema. negative: Murmur : Normal. negative: Dysuria, Hematuria, Bleeding Auscultation: Bowel Sounds: Normal Tenderness: Normal Skin: Bruising. negative: Ecchymosis Musculoskeletal: Normal Psychiatric: Normal Mood Description: Calm Affect: Normal Speech Pattern: Unclear, Delayed - Laboratory and Diagnostics Result Diagrams: 12/26/16 05:25 12/26/16 05:25 Labs: 12/22/16 16:00 Throat Throat Culture - Final Klebsiella Pneumoniae Laboratory WBC 0.5 X10^3/uL (3.6-10.0) L* 12/26/16 05:25 RBC 2.12 X10^6/uL (3.5-5.4) L 12/26/16 05:25 Hgb 7.0 g/dL (12.0-16.0) L 12/26/16 05:25 Hct 21.0 % (36.0-47.0) L 12/26/16 05:25 MCV 98.7 fL (80.0-100.0) 12/26/16 05:25 MCH 32.8 pg (27.0-34.0) 12/26/16 05:25 MCHC 33.3 g/dL (33.0-35.0) 12/26/16 05:25 RDW 18.7 % (11.6-16.5) H 12/26/16 05:25 Plt Count 5 X10^3/uL (150.0-450.0) L* 12/26/16 05:25 Plt Count Comment Decreased (ADEQUATE) A 12/26/16 05:25 MPV 10.4 fL (7.4-11.0) 12/26/16 05:25 Neut % 13.7 % (42.0-75.0) L 12/26/16 05:25 Lymph % 68.4 % (21.0-51.0) H 12/26/16 05:25 [place] % 13.9 % (0.0-13.0) H 12/26/16 05:25 Eos % 3.8 % (0.9-2.9) H 12/26/16 05:25 Baso % 0.2 % (0.2-1.0) 12/26/16 05:25 Neut # 0.1 x10^3/uL (2.2-4.8) L 12/26/16 05:25 Lymph # 0.3 X10^3/uL (1.3-2.9) L 12/26/16 05:25 [place] # 0.1 x10^3/uL (0.3-0.8) L 12/26/16 05:25 Eos # 0.0 x10^3/uL (0.0-0.2) 12/26/16 05:25 Baso # 0.0 X10^3/uL (0.0-0.1) 12/26/16 05:25 Absolute Nucleated RBC 2.0 /100WBC 12/26/16 05:25 Total Counted 25 12/26/16 05:25 Neutrophils % (Manual) 10 % (39-76) L 12/26/16 05:25 Lymphocytes % (Manual) 78 % (13-43) H 12/26/16 05:25 Monocytes % (Manual) 2 % (4-9) L 12/26/16 05:25 Eosinophils % (Manual) 2 % (0-6) 12/25/16 06:25 Smudge Cells rare 12/25/16 06:25 Plt Clumps, EDTA Rare 12/24/16 07:55 Plt Morphology Comment Normal (NORMAL) 12/26/16 05:25 RBC Morphology Abnormal (NORMAL) A 12/26/16 05:25 Hypochromasia 1+ A 12/26/16 05:25 Anisocytosis 1+ A 12/26/16 05:25 Microcytosis Slight A 12/26/16 05:25 Smear Path Review See note 12/22/16 13:43 Sodium 142 mmol/L (136-145) 12/26/16 05:25 Corrected Sodium 148 mmol/L (136-145) H 12/26/16 05:25 Potassium 3.1 mmol/L (3.5-5.1) L 12/26/16 05:25 Chloride 102 mmol/L (98-107) 12/26/16 05:25 Carbon Dioxide 38.6 mmol/L (21-32) H 12/26/16 05:25 BUN 29 mg/dL (7-18) H 12/26/16 05:25 Creatinine 0.95 mg/dL (0.55-1.02) 12/26/16 05:25 Est GFR (MDRD) Af Amer > 60 (>60) 12/26/16 05:25 Est GFR (MDRD) Non-Af 59 (>60) 12/26/16 05:25 Glucose 336 mg/dL (65-99) H 12/26/16 05:25 POC Glucose (mg/dL) 268 mg/dL (65-99) H 12/25/16 17:41 Calcium 9.1 mg/dL (8.5-10.1) 12/26/16 05:25 Corrected Calcium 10.4 mg/dL (8.5-10.1) H 12/26/16 05:25 Total Bilirubin 4.70 mg/dL (0.2-1.0) H 12/26/16 05:25 AST 89 Units/L (15-37) H 12/26/16 05:25 ALT 90 Units/L (12-78) H 12/26/16 05:25 Alkaline Phosphatase 44 Units/L (46-116) L 12/26/16 05:25 C-Reactive Protein 130.50 mg/L (0-3.0) H 12/22/16 01:25 Total Protein 5.0 g/dL (6.4-8.2) L 12/26/16 05:25 Albumin 2.4 g/dL (3.4-5.0) L 12/26/16 05:25 Globulin 2.6 g/dL (2.5-4.5) 12/26/16 05:25 Albumin/Globulin Ratio 0.9 Ratio (1.1-2.1) L 12/26/16 05:25 Prealbumin 8.6 mg/dL (18-35.7) L 12/23/16 05:30 Specimen Type Catherized urine 12/22/16 20:19 Urine Color Yellow (YELLOW) 12/22/16 20:19 Urine Appearance Clear (CLEAR) 12/22/16 20:19 Urine pH 5.0 (5.0 - 8.0) 12/22/16 20:19 Ur Specific [place] 1.010 (1.000-1.030) 12/22/16 20:19 Urine Protein 2+ (NEGATIVE) 12/22/16 20:19 Urine Glucose (UA) 2+ (NEGATIVE) 12/22/16 20:19 Urine Ketones Negative (NEGATIVE) 12/22/16 20:19 Urine Occult Blood 1+ (NEGATIVE) 12/22/16 20:19 Urine Nitrite Negative (NEGATIVE) 12/22/16 20:19 Urine Bilirubin Negative (NEGATIVE) 12/22/16 20:19 Urine Urobilinogen Normal (NORMAL) 12/22/16 20:19 Ur Leukocyte Esterase Negative (NEGATIVE) 12/22/16 20:19 Urine RBC 0-2 /HPF (NEGATIVE) 12/22/16 20:19 Urine WBC None seen /HPF (NEGATIVE) 12/22/16 20:19 Ur Squamous Epith Cells Rare /HPF (NEGATIVE) 12/22/16 20:19 Urine Bacteria Trace /HPF (NEGATIVE) 12/22/16 20:19 Ur Culture Indicated? No/not indicated 12/22/16 20:19 Stl C. diff Tox B Gene Negative (NEGATIVE) 12/22/16 12:58 Stl C. diff [id number] Negative (NEGATIVE) 12/22/16 12:58 Digoxin 0.71 ng/mL (0.9-2) L 12/23/16 05:30 Blood Type A POSITIVE 12/22/16 15:35 Antibody Screen Negative 12/22/16 15:35 - Plan (1) leukopenia stomatitis Status: Acute Plan: fortaz iv, levaquin iv, carafate solution to mouth achs, viscous lidocaine , magic mouthwash, nystatin suspension, diflucan iv, continue to monitor (2) Leukopenia Status: Acute Qualifiers: Leukopenia type: lymphocytopenia Qualified Code(s): D72.810 - Lymphocytopenia Plan: neupogen 480mg sq daily, continue to monitor (3) Thrombocytopenia Status: Acute Plan: continue to monitor (4) Hypoalbuminemia due to protein-calorie malnutrition Status: Acute Plan: tpn, albumin daily, continue to monitor
== END 2016-12-26 11:54 | DRG 158 ==
LOC: ER 23:52 → OBSVTOIN 12-22 03:55 → ICU 12-22 03:55
PROVIDERS: ADMIT Internal Medicine; ATTEND Internal Medicine
PROC: 30233R1 Transfusion of Nonautologous Platelets into Peripheral Vein, Percutaneous Approach (ICD-10-PCS; principal; 2016-12-22)
PROC: 30233R1 Transfusion of Nonautologous Platelets into Peripheral Vein, Percutaneous Approach (ICD-10-PCS; 2016-12-23)
PROC: 06HM33Z Insertion of Infusion Device into Right Femoral Vein, Percutaneous Approach (ICD-10-PCS; 2016-12-24)
DX: K12.1 Other forms of stomatitis (principal); E46 Unspecified protein-calorie malnutrition; D72.810 Lymphocytopenia; R41.82 Altered mental status, unspecified; B96.1 Klebsiella pneumoniae [K. pneumoniae] as the cause of diseases classified elsewhere; D69.6 Thrombocytopenia, unspecified; E88.09 Other disorders of plasma-protein metabolism, not elsewhere classified; Z86.73 Personal history of transient ischemic attack (TIA), and cerebral infarction without residual deficits; E11.8 Type 2 diabetes mellitus with unspecified complications; I10 Essential (primary) hypertension; I50.9 Heart failure, unspecified
CPT/HCPCS: 36415; 36556; 70450; 71010; 80053; 80162; 81001; 84134; 85025; 85060; 86140; 86850; 86900; 86901; 87070; 87077; 87186; 87493; 94640; 96365; 99284; A4216; A4222; B4189; P9035; P9047; J0713; J1450; J1815; J1940; J1956; J2270; J3360; J3480; J7620